=== PATIENT | female | born 1940 | race Caucasian/White ===

== ENCOUNTER 2022-10-23 10:22 | Outpatient (CLI) | payer OTHER, SELFPAY ==
[2022-10-23 13:48] LABS: Albumin* 4.1 g/dL (3.3-5.0)
[2022-10-23 13:49] LABS: Chloride* 92 mmol/L (96-114); Potassium* 4.6 mmol/L (3.6-5.1); Sodium* 127 mmol/L (135-149)
[2022-10-23 13:51] LABS: Aspartate Amino Transferase* 37 U/L (12-35); Bilirubin Total* 0.6 mg/dL (0.1-1.5); Carbon Dioxide* 28 mmol/L (20-32); Cholesterol* 161 mg/dL (90-199); Creatinine* 0.9 mg/dL (0.5-1.5); Estimated Glomerular Filt Rate 65 ml/min; Total Protein* 7.2 g/dL (6.0-8.3)
[2022-10-23 13:52] LABS: Alanine Aminotransferase* 36 U/L (4-35); Alkaline Phosphatase* 99 U/L (40-150); Blood Urea Nitrogen* 10 mg/dL (7-30); Calcium* 9.1 mg/dL (8.4-10.6); Glucose* 111 mg/dL (60-115); HDL Cholesterol* 72 mg/dL (>=50); LDL Cholesterol Calculated 64 mg/dL (<100); Triglycerides* 123 mg/dL (40-149)
[2022-10-23 14:20] LABS: TSH With Reflex to FT4* 0.981 uIU/mL (0.270-4.200)
== END 2022-10-23 10:23 | disposition home or self-care (01) ==
PROVIDERS: PCP Physician Assistant Medical; Visit Provider Physician Assistant Medical
DX: E78.2 Mixed hyperlipidemia (principal); E78.5 Hyperlipidemia, unspecified; I10 Essential (primary) hypertension; I15.0 Renovascular hypertension; J41.0 Simple chronic bronchitis
CPT/HCPCS: 80053; 80061; 84443

== ENCOUNTER 2023-12-25 10:47 | Outpatient (CLI) | payer OTHER, SELFPAY | END 2023-12-25 10:48 | disposition home or self-care (01) | LOC: NFLDREF 12-26 07:22 | PROVIDERS: PCP Physician Assistant Medical; Referring Provider Physician Assistant Medical; Visit Provider Physician Assistant Medical | DX: Z78.0 Asymptomatic menopausal state (principal); E78.2 Mixed hyperlipidemia; E87.1 Hypo-osmolality and hyponatremia; I70.1 Atherosclerosis of renal artery; M85.80 Other specified disorders of bone density and structure, unspecified site | CPT/HCPCS: 80053; 80061; 84443 ==

== ENCOUNTER 2025-03-15 11:54 | Outpatient (CLI) | payer OTHER, SELFPAY | END 2025-03-15 11:55 | disposition home or self-care (01) | LOC: NFLDREF 03-17 02:44 | PROVIDERS: PCP Physician Assistant Medical; Referring Provider Physician Assistant Medical; Visit Provider Physician Assistant Medical | DX: Z00.00 Encounter for general adult medical examination without abnormal findings (principal); I10 Essential (primary) hypertension; E87.1 Hypo-osmolality and hyponatremia; I15.0 Renovascular hypertension; E78.2 Mixed hyperlipidemia; I70.1 Atherosclerosis of renal artery | CPT/HCPCS: 80053; 80061; 84443 ==

== ENCOUNTER 2025-03-27 10:33 | Inpatient (IN) | payer OTHER, SELFPAY ==
[2025-03-27] VITALS (31 sets, daily range): BP systolic 112–171; BP diastolic 56–80; PULSE 77–148; RESP 18–35; TEMP 36.6–36.9; O2SAT 74–96; BMI 17.4; BMI 19.0
--- NOTE | 2025-03-27 10:55 | CRLHL7_ITS ---
For Patients: As a result of the Cures Act, medical imaging exams and procedure reports are released immediately into your electronic medical record. You may view this report before your referring provider. If you have questions, please contact your health care provider. INDICATION: Shortness of breath. No additional clinical history is given. COMPARISON: No recent prior comparison examination. Comparison is made to much older examinations, the most recent dated 06/27/2015. TECHNIQUE: PA and lateral views of the chest. FINDINGS: Medical Devices: None. Lung Volumes: Increased lung volumes consistent with chronic obstructive airways disease.. Lungs: Advanced emphysema. Bilateral peripheral midlung ill-defined opacities on the frontal view of the chest could be due to nonspecific acute airspace disease (i.e. bronchopneumonia) in the correct clinical setting. No coalescent consolidation. Nonspecific perihilar peribronchial cuffing consistent with bronchitis. Differential diagnostic considerations include interstitial edema. Cephalization of the pulmonary vascular markings may indicate pulmonary venous congestion. Pleura and Pleural spaces: No significant pleural effusion. No pneumothorax. Mediastinum: Normal cardiomediastinal silhouette. Bony Thorax and Soft Tissues: No significant incidental findings. IMPRESSION: 1. Advanced emphysema. Associated increased lung volumes are consistent with chronic obstructive airways disease. 2. Bilateral peripheral midlung ill-defined opacities on the frontal view of the chest could be due to nonspecific acute airspace disease (i.e. bronchopneumonia) in the correct clinical setting. 3. Nonspecific perihilar peribronchial cuffing consistent with bronchitis. Differential diagnostic considerations include interstitial edema. 4. Cephalization of the pulmonary vascular markings may indicate pulmonary venous congestion. Correlate clinically as to congestive heart failure or volume overload. Dictated by Guanaco Carrion MD @ 03/27/2025 12:15:27 PM (Electronically Signed)
--- NOTE | 2025-03-27 10:57 | ED.SOB ---
HPI - SOB/Dyspnea General Chief Complaint: Shortness of Breath/Dyspnea Stated Complaint: Shortness of breath and coughing Time Seen by Provider: 03/27/25 10:51 History of Present Illness HPI Narrative: Patient is a 84-year-old woman who comes in today with a 6 day history of shortness of breath. History of COPD and still smokes 3 cigarettes per day. She has had no chest pain she does have orthopnea but no PND no nausea no vomiting no fevers no chills. Patient states that she feels like she may have an infection as she is much worse on her breathing now. Patient has not missed any of her medications. No other concerns. Cough is nonproductive. Related Data Previous Rx's ?Medication ?Instructions ?Recorded albuterol sulfate 90 mcg/actuation 2 puff inhalation Q6H PRN 03/15/25 aerosol inhaler (Ventolin HFA) shortness of breath or wheezing #8.5 grams fluticasone furoate 200 1 ea PO DAILY 3 months #180 ea 03/15/25 mcg-vilanterol 25 mcg/dose inhalation powder (Breo Ellipta) lisinopril 10 mg tablet 10 mg PO QDAY #90 tabs 03/15/25 metoprolol succinate 50 mg 50 mg PO QDAY #90 tabs 03/15/25 tablet,extended release 24 hr pravastatin 20 mg tablet 20 mg PO QHS #90 tabs 03/15/25 Allergies Allergy/AdvReac Type Severity Reaction Status Date / Time seasonal Allergy Mild Sneezing Uncoded 03/15/25 11:03 Review of Systems Status of ROS: Reports: 10 or more systems reviewed and unremarkable except as noted in History and below [facility] Medical History Tobacco use (05/18/09) ?Z72.0 - Tobacco use (ICD-10) History of benign breast biopsy (06/21/10) ?Z98.890 - Other specified postprocedural states (ICD-10) Surgical History History of cataract extraction ?Z98.49 - Cataract extraction status, unspecified eye (ICD-10) Social History What is your current living situation?: I presently have a place to live Problems where you live: no known problems In the past 12 months, utilities in danger of being shut off: no In past 12 months, lack of transportation kept you from medical appts, meetings, work, or getting things needed for daily living: no In the past 12 mos, have been you worried that your food would run out before you had money to buy more?: never true In the past 12 mos, the food you bought just didn't last and you didn't have money to buy more?: never true Smoking Status: Current every day smoker How often do you have a drink containing alcohol: never AUDIT-C Alcohol total score: 0 Non-prescribed substance use: denies use How often does anyone, including family, friends and others, physically hurt you: never How often does anyone, including family, friends and others, insult or talk down to you: never How often does anyone, including family, friends and others, threaten you with harm: never How often does anyone, including family, friends and others, scream or curse at you: never Exam Narrative: Exam Narrative: EXAM GENERAL: Patient appears elderly and he may seated. THYROID: no thyroid nodules or thyromegaly. LYMPH: No supraclavicular or cervical lymphadenopathy. SKIN: Visible skin seen during exam normal or with benign process only. EXT: No dependent lower extremity pedal edema. HEART: Regular rate and rhythm with no murmurs, rubs, or gallops. LUNGS: Diffuse wheezing and rhonchi heard bilaterally. ABD: Soft, non tender, non distended. PSYCH: Good eye contact, speech is not pressured. Const: Vital Signs, click to edit/add: Vital Signs - 24 hr 03/27/25 10:39 03/27/25 10:54 03/27/25 10:56 Temperature 98.2 F Pulse Rate 99 Pulse Rate [Pulse Oximeter] 102 H Respiratory Rate 28 H 32 H 25 H Blood Pressure 171/76 H Blood Pressure [Ri ght Upper Arm] 152/62 H Pulse Oximetry 88 74 L 89 Oxygen Delivery Me thod Room Air Room Air Oxygen Flow Rate Fraction of Inspir ed Oxygen 03/27/25 10:57 03/27/25 10:58 03/27/25 11:00 Temperature Pulse Rate 94 90 Pulse Rate [Pulse Oximeter] Respiratory Rate 30 H 35 H Blood Pressure Blood Pressure [Ri ght Upper Arm] Pulse Oximetry 92 85 L 91 Oxygen Delivery Me thod Nasal Cannula Room Air Oxygen Flow Rate 1 2 Fraction of Inspir ed Oxygen 03/27/25 11:02 03/27/25 11:15 03/27/25 11:30 Temperature Pulse Rate 95 84 90 Pulse Rate [Pulse Oximeter] Respiratory Rate 35 H 30 H 35 H Blood Pressure 170/72 H Blood Pressure [Ri ght Upper Arm] Pulse Oximetry 90 92 92 Oxygen Delivery Me thod Oxygen Flow Rate Fraction of Inspir ed Oxygen 03/27/25 11:31 03/27/25 11:48 03/27/25 12:00 Temperature Pulse Rate 87 102 H 94 Pulse Rate [Pulse Oximeter] Respiratory Rate 27 H 21 Blood Pressure 141/69 H Blood Pressure [Ri ght Upper Arm] Pulse Oximetry 92 93 96 Oxygen Delivery Me thod Oxygen Flow Rate Fraction of Inspir ed Oxygen 03/27/25 12:01 03/27/25 13:01 Temperature Pulse Rate 97 Pulse Rate [Pulse Oximeter] Respiratory Rate 32 H Blood Pressure 147/77 H Blood Pressure [Ri ght Upper Arm] Pulse Oximetry 95 Oxygen Delivery Me thod Nasal Cannula Oxygen Flow Rate Fraction of Inspir ed Oxygen 0.28 Course Course ED Course: Will begin workup with CBC CMP troponin D-dimer blood gas blood cultures procalcitonin and lactate. Will also obtain EKG and chest x-ray. Vital Signs Vital signs: Initial Vital Signs Temperature 98.2 F 03/27/25 10:39 Temperature Source Temporal Artery Scan 03/27/25 10:39 Pulse Rate 102 H 03/27/25 10:39 Respiratory Rate 28 H 03/27/25 10:39 Blood Pressure 152/62 H 03/27/25 10:39 Blood Pressure Mean 92 03/27/25 10:39 Pulse Oximetry 88 03/27/25 10:39 Oxygen Delivery Method Room Air 03/27/25 10:39 Vital Signs Temperature 98.2 F 03/27/25 10:39 Pulse Rate 102 H 03/27/25 10:39 Respiratory Rate 28 H 03/27/25 10:39 Blood Pressure 152/62 H 03/27/25 10:39 Pulse Oximetry 88 03/27/25 10:39 Oxygen Delivery Method Room Air 03/27/25 10:39 Temperature 98.2 F 03/27/25 10:39 Pulse Rate 97 03/27/25 12:01 Respiratory Rate 32 H 03/27/25 12:01 Blood Pressure 147/77 H 03/27/25 12:01 Pulse Oximetry 95 03/27/25 12:01 Oxygen Delivery Method Nasal Cannula 03/27/25 13:01 Oxygen Flow Rate 2 03/27/25 10:58 Fraction of Inspired Oxygen 0.28 03/27/25 13:01 Medications Administered Medications: Discontinued Medications Generic Name Dose Route Start Last Admin Trade Name Gaye PRN Reason Stop Dose Admin Albuterol/Ipratropium 1 neb 03/27/25 11:00 03/27/25 11:45 Iprat-Albut 0.5-2.5 Mg/3 Ml Neb IH 03/27/25 11:01 1 neb ONCE ONE Administration Azithromycin 500 mg/ Sodium 255 mls @ 255 mls/hr 03/27/25 12:23 03/27/25 12:50 Chloride IVPB 03/27/25 12:24 255 mls/hr ONCE ONE Administration Methylprednisolone Sodium Succinate 40 mg 03/27/25 12:23 03/27/25 12:41 Methylprednisolone Sod Succ 40 Mg/Ml IVP 03/27/25 12:24 40 mg ONCE ONE Administration MDM - SOB/Dyspnea MDM Narrative Medical decision making narrative: Patient presents with shortness of breath in the setting of COPD. Does have elevated white blood cell count but a normal procalcitonin. She did have blood cultures collected. Chest x-ray shows bibasilar interstitial findings D-dimer was mildly elevated. I did do CT of her chest and she does have tree-in-bud formation consistent with viral pneumonia. I did give her Rocephin Zithromax Solu-Medrol and DuoNeb. Patient will be admitted for further evaluation and treatment. She requires 2 L of oxygen to maintain her saturation. Lab Data Labs: Lab Results 03/27/25 03/27/25 Range/Units 11:09 Unknown WBC 15.31 H (4.50-11.00) K/uL RBC 4.47 (4.00-5.20) m/uL Hgb 13.8 (12.0-16.0) gm/dL Hct 41.0 (33.0-51.0) % MCV 92 (80-100) fL MCH 31 (26-34) pg MCHC 34 (32-36) gm/dL RDW Coeff of Gena 12.0 (11.5-15.5) % Plt Count 367 (140-440) K/uL Neut % (Auto) 86.3 H (42.0-72.0) % Lymph % (Auto) 6.1 L (20-44) % [place] % (Auto) 6.9 (0.0-11.0) % Eos % (Auto) 0.1 (0.0-7.0) % Baso % (Auto) 0.3 (0.0-3.0) % Neut # (Auto) 13.20 H (1.7-7.0) K/uL Lymph # (Auto) 0.90 (0.90-2.90) K/uL [place] # (Auto) 1.10 H (0.00-0.90) K/UL Eos # (Auto) 0.00 (0.00-0.50) K/uL Baso # (Auto) 0.00 (0.00-0.30) K/uL Abs Immat Gran (auto) 0.00 (0.00-0.30) K/uL Imm/Tot Granulo (auto) 0.3 % D-Dimer Quant (PE/DVT) 0.71 H (0.00-0.50) ug/ml ABG pH 7.45 (7.35-7.45) ABG pCO2 43 (35-45) mmHG ABG pO2 62.2 L (80-105) mmHG ABG HCO3 30 H (21-28) mmol/L ABG Total CO2 26 (21-30) mmol/l ABG O2 Saturation 93 (92-100) % ABG Base Excess 4.8 H (-3.0-3.0) mmol/L Sodium 130 L (135-149) mmol/L Potassium 4.0 (3.6-5.1) mmol/L Chloride 90 L (96-114) mmol/L Carbon Dioxide 31 (20-32) mmol/L Anion Gap 9 (7-15) mEq/L BUN 8 (7-30) mg/dL Creatinine 0.7 (0.5-1.5) mg/dL Estimated Creat Clear 27.64 Estimated GFR 86 ml/min Glucose 136 H (60-115) mg/dL Lactate 1.8 (0.5-1.9) mmol/L Calcium 9.0 (8.4-10.6) mg/dL Total Bilirubin 0.6 (0.1-1.5) mg/dL AST 38 H (12-35) U/L ALT 26 (4-35) U/L Alkaline Phosphatase 107 (40-150) U/L Troponin I 0.01 (0.01-0.04) ng/mL Total Protein 7.3 (6.0-8.3) g/dL Albumin 3.9 (3.3-5.0) g/dL Procalcitonin 0.10 (<0.50) ng/mL SARS-CoV-2 (PCR) Negative SARS-CoV-2 (Negative) Influenza Type A (PCR) Negative PCR FLU A (Negative) Influenza Type B (PCR) Negative PCR FLU B (Negative) RSV (PCR) Negative PCR RSV (Negative) Discharge Plan Discharge Clinical Impression: COPD (chronic obstructive pulmonary disease) Qualifiers: COPD type: chronic bronchitis Chronic bronchitis type: simple Qualified Code(s): J41.0 - Simple chronic bronchitis Patient Disposition: Admitted As Observation Condition: Stable Activity Level: No Restrictions Discharge Diet: Regular Procedures ABG Interpretation ABG Results: 03/27/25 11:09 ABG pH 7.45 ABG pCO2 43 ABG pO2 62.2 L ABG HCO3 30 H ABG Total CO2 26 ABG O2 Saturation 93 ABG Base Excess 4.8 H
[2025-03-27 11:17] LABS: Hematocrit* 41.0 % (33.0-51.0); Hemoglobin* 13.8 gm/dL (12.0-16.0); Immature Granulocytes Pct Auto 0.3 %; Mean Corpuscular HGB Conc 34 gm/dL (32-36); Mean Corpuscular Hemoglobin 31 pg (26-34); Mean Corpuscular Volume 92 fL (80-100); RDW Coefficient of Variation % 12.0 % (11.5-15.5); Red Blood Count* 4.47 m/uL (4.00-5.20); White Blood Count* 15.31 K/uL (4.50-11.00)
[2025-03-27 11:20] LABS: Immature Granulocytes Abs Auto 0.00 K/uL (0.00-0.30); Lymphocytes Absolute Auto 0.90 K/uL (0.90-2.90); Slide Review Reflex No
[2025-03-27 11:33] LABS: ABG PCO2 43 mmHG (35-45); HCO3 ABG 30 mmol/L (21-28); Oxygen Saturation ABG 93 % (92-100); PO2 ABG 62.2 mmHG (80-105); TCO2 ABG 26 mmol/l (21-30)
[2025-03-27 11:34] LABS: Chloride* 90 mmol/L (96-114)
[2025-03-27 11:35] LABS: Albumin* 3.9 g/dL (3.3-5.0); Lactate* 1.8 mmol/L (0.5-1.9); Potassium* 4.0 mmol/L (3.6-5.1); Sodium* 130 mmol/L (135-149)
[2025-03-27 11:37] LABS: Blood Urea Nitrogen* 8 mg/dL (7-30); Creatinine* 0.7 mg/dL (0.5-1.5); Est. Creatinine Clearance* 27.64; Estimated Glomerular Filt Rate 86 ml/min
[2025-03-27 11:38] LABS: Alanine Aminotransferase* 26 U/L (4-35); Alkaline Phosphatase* 107 U/L (40-150); Anion Gap 9 mEq/L (7-15); Aspartate Amino Transferase* 38 U/L (12-35); Bilirubin Total* 0.6 mg/dL (0.1-1.5); Calcium* 9.0 mg/dL (8.4-10.6); Carbon Dioxide* 31 mmol/L (20-32); Glucose* 136 mg/dL (60-115); Total Protein* 7.3 g/dL (6.0-8.3)
[2025-03-27 11:40] LABS: D Dimer Quantitative* 0.71 ug/ml (0.00-0.50)
[2025-03-27] MEDS: IPRAT-ALBUT 0.5-2.5 MG/3 ML NEB 1 NEB IH ×3 (11:45→22:40)
[2025-03-27 11:55] LABS: Procalcitonin* 0.10 ng/mL (<0.50)
--- NOTE | 2025-03-27 12:15 | CRLHL7_ITS ---
For Patients: As a result of the Century Cures Act, medical imaging exams and procedure reports are released immediately into your electronic medical record. You may view this report before your referring provider. If you have questions, please contact your health care provider. INDICATION: Shortness of breath. Positive D-dimer. TECHNIQUE: CT chest with 95 cc Isovue 370 i.v. contrast. Pulmonary embolism protocol. Coronal and sagittal reformats were obtained. COMPARISON: Chest radiograph from 03/27/2025. FINDINGS: Cardiovascular: The heart has an unremarkable appearance and size. Thoracic aorta is normal in caliber and appearance. The pulmonary arteries are normal in appearance. Mediastinum and rosario: Bilateral. Hilar bronchial wall thickening. Lungs: Multiple nodular opacities within the lungs, most prominent within the perihilar regions and the right upper lobe. There is also platelike opacification at the right lung base which may reflect atelectasis or scar. Mosaic attenuation within the lungs bilaterally, most prominent in the upper lung regions, most likely reflecting air trapping in this setting. Emphysematous changes are present within the lungs. Pleura and pericardium: Within normal limits. Chest wall and axilla: Mildly accentuated thoracic kyphosis. No acute osseous abnormalities. Bones: Within normal limits. Upper abdomen: Within normal limits. IMPRESSION: 1. No evidence of pulmonary embolism. 2. Perihilar bronchiolar wall thickening and scattered pulmonary nodules/tree-in-bud opacities as well as some evidence of air trapping. Usually this is seen in the setting of small airways infection, inflammatory bronchiolitis, or aspiration. 3. Bilateral emphysematous changes within both lungs. Please note that all CT scans at this facility use dose modulation, iterative reconstruction, and/or weight-based dosing when appropriate to reduce radiation dose to as low as reasonably achievable. Dictated by Tee Griffin MD @ 03/27/2025 1:29:19 PM (Electronically Signed)
[2025-03-27 12:47] LABS: PCR FLU A Negative PCR FLU A (Negative); PCR FLU B Negative PCR FLU B (Negative); PCR RSV Negative PCR RSV (Negative); SARS PCR* Negative SARS-CoV-2 (Negative)
[2025-03-27] MEDS: AZITHROMYCIN 500 MG in 0.9 % SODIUM CHLORIDE 250 ml 250 ML 255 MG IVPB (12:50)
[2025-03-27] MEDS: cefTRIAXone 1 GM in 0.9 % SODIUM CHLORIDE Mini-bag 100 ML IVPB (13:57)
--- NOTE | 2025-03-27 15:46 | PM.IMHP1 ---
Assessment and Plan Assessment and plan (1) Acute on chronic hypoxic respiratory failure: Problem comment: - multifactorial including acute bronchopneumonia, COPD, ongoing tobacco use - oxygen support for now, monitoring venous blood gases as warranted - increased management of COPD Status: Acute (2) Bronchopneumonia: Problem comment: - meets radiographic carry teary, laboratory criteria, as well as physiologic criteria with increased dyspnea and cough and history of fever at the onset 6-7 days ago - received intravenous ceftriaxone and azithromycin in the emergency department - will continue with ceftriaxone 1 g IV daily and change to doxycycline 100 mg orally twice daily - monitor CBC, venous blood gas, BNP, EKG, troponin I Status: Acute (3) Physical deconditioning: Problem comment: - activities as tolerated - venous thromboembolism prophylaxis, enoxaparin 30 mg subcutaneously once daily given creatinine clearance of 27 Status: Acute (4) Tobacco use: Problem comment: - pre contemplative about smoking cessation at this juncture - willing to try nicotine patch, after I explained that will not address her psychological and emotional dependence but only help with the physical dependence Status: Acute (5) COPD (chronic obstructive pulmonary disease): Problem comment: - in-hospital will use nebulized budesonide and albuterol with ipratropium on a scheduled basis, plus albuterol nebulization as needed - Aerobika device use with respiratory therapy support and education Status: Acute Plan 1. Reviewed impression, plans, recommendations with patient 2. Answered patient's questions to her satisfaction 3. Continue with supportive efforts for other conditions 4. IV normal saline 2 L over 16 hours and monitor serum sodium 5. Nutrition consultation given ongoing concerns of weight loss in association with advanced lung disease 6. Patient agreeable with above stated plans and recommendations Total Time Spent Total Time Spent: 70 minutes Hospitalist- H&P: HPI History of Present Illness Date Seen: 03/27/25 Chief complaint: Shortness of breath and coughing Narrative: Jenelle Manuel is a 84 year old woman who presents to the emergency department with a 6-7 day history of increasing dyspnea with exertion, productive cough, decreased appetite. She has lived in her own home alone for the past 11 months. Previously she lived in her own home with her daughter and son-in-law, who moved out 11 months ago. Has felt increased sense of anxiety and stress since living alone. She tells me she uses smoking as a means to decrease her sense of anxiety. She says she gets nervous ?really easy. ? When she does smoke she takes 2-3 puffs of a cigarette, puts out the cigarette in later does the same thing and smokes 3-4 cigarettes per day in this fashion. He eventually wants to continue to try to cut down on her smoking but not ready to do so any more than she already has at this time. 6-7 days ago, she had marked worsening of her health due to increase cough with sputum production, increasing dyspnea with exertion, a sense of feeling feverish although she never took her temperature. Her appetite has declined significantly since that time as well. Does not believe her condition has improved at all over the last 6-7 days and has become increasingly anxious about the same. Finally this morning she decided that she had had enough and called her daughter, Syl, who lives in [facility], who recommended that the patient present to the emergency department for further assessment. Has not had any fevers since that 1st and 2nd day. Other symptoms progressively increasing such that she can hardly even walk now due to dyspnea. Ordinarily does not have dyspnea with conversation but notes increasing dyspnea with conversation. Denies edema. Denies chest heaviness, pressure, tightness, pain. Denies syncope or near-syncope. Has had decreased oral intake due to decreased interest in eating. Review of Systems Status of ROS: Reports: 10 or more systems reviewed and unremarkable except as noted in History and below Narrative: In addition to symptoms specified above she denies any additional gastrointestinal or genitourinary tract symptoms. Denies nausea, vomiting, or abdominal pain. Denies blood loss of any sort including hemoptysis, hematemesis, hematuria, melena, hematochezia, epistaxis, or any other sort of blood loss. No recent travel or trauma. No focal motor neurologic deficits. Remarkably she tells me she has been using her scheduled medications only. She has not tried to use her rescue inhaler at all. Noticed an improvement in her breathing when she received the nebulized albuterol in the emergency department today. Improvement did not last long but was certainly noticeable. Medical Decision Making Medical Decision Making Code Status: Full resuscitation Has patient completed a Health Care Directive: Yes During This Stay, Who Would You Like To Make Decisions For You In The Event You Are Unable To Make Them For Yourself?: Designates her daughter, Syl, as her principal spokes person should she herself not be able to speak on her own behalf. Relevant situational information: Does not want to be kept alive in a persistent vegetative state. [facility] Medical History COPD (chronic obstructive pulmonary disease) ?J44.9 - Chronic obstructive pulmonary disease, unspecified (ICD-10) Osteopenia (06/21/10) ?M85.80 - Other specified disorders of bone density and structure, unspecified site (ICD-10) Renal artery stenosis ?I70.1 - Atherosclerosis of renal artery (ICD-10) Hyperlipidemia (06/21/10) ?E78.5 - Hyperlipidemia, unspecified (ICD-10) Hypertension (05/18/09) ?I10 - Essential (primary) hypertension (ICD-10) Chronic hyponatremia ?E87.1 - Hypo-osmolality and hyponatremia (ICD-10) Tobacco use (05/18/09) ?Z72.0 - Tobacco use (ICD-10) History of benign breast biopsy (06/21/10) ?Z98.890 - Other specified postprocedural states (ICD-10) Surgical History History of cataract extraction ?Z98.49 - Cataract extraction status, unspecified eye (ICD-10) Social History What is your current living situation?: I presently have a place to live Problems where you live: no known problems Problems where you live details: none In the past 12 months, utilities in danger of being shut off: no In past 12 months, lack of transportation kept you from medical appts, meetings, work, or getting things needed for daily living: no In the past 12 mos, have been you worried that your food would run out before you had money to buy more?: never true In the past 12 mos, the food you bought just didn't last and you didn't have money to buy more?: never true Highest level of school completed/degree received: high school graduate Smoking Status: Current every day smoker What tobacco products do you use: cigarettes How often do you have a drink containing alcohol: never AUDIT-C Alcohol total score: 0 Non-prescribed substance use: denies use Caffeine: Yes (coffee) How often does anyone, including family, friends and others, physically hurt you: never How often does anyone, including family, friends and others, insult or talk down to you: never How often does anyone, including family, friends and others, threaten you with harm: never How often does anyone, including family, friends and others, scream or curse at you: never service: No Meds Home Medications and Allergies Home Medications ?Medication ?Instructions ?Recorded ?Confirmed ?Type albuterol sulfate 90 mcg/actuation 2 puff inhalation Q6H PRN 03/15/25 03/27/25 Rx aerosol inhaler (Ventolin HFA) shortness of breath or wheezing #8.5 grams fluticasone furoate 200 1 ea PO DAILY 03/27/25 03/27/25 History mcg-vilanterol 25 mcg/dose inhalation powder (Breo Ellipta) lisinopril 10 mg tablet 10 mg PO DAILY 03/27/25 03/27/25 History metoprolol succinate 50 mg 50 mg PO DAILY 03/27/25 03/27/25 History tablet,extended release 24 hr pravastatin 20 mg tablet 20 mg PO HS 03/27/25 03/27/25 History Allergies Allergy/AdvReac Type Severity Reaction Status Date / Time seasonal Allergy Mild Sneezing Uncoded 03/15/25 11:03 Exam Narrative: Exam Narrative: I examined patient in her hospital room. With oxygen supplementation at 2 liters/minute her oxygen saturations are about 90%. On admission her room air oxygen saturations were as low as 74%. Ordinarily does not utilize oxygen supplementation. She is indeed tachypneic and acknowledges dyspnea with conversation. Appears somewhat anxious. Otherwise appears comfortable. No acute distress. Alert and oriented x4. Vision and hearing are adequate. Friendly, articulate, cooperative. Appears thin and cachectic. No icterus, jaundice, cyanosis, or petechiae. No rashes. Midline nasal septum. Dry buccal mucosa. Dentition in fair repair. Conjugate gaze. Cranial nerves 3-12 grossly normal. Midline trachea. No head neck lymphadenopathy. No JVD or hepatojugular reflux. Coarse scattered rhonchi throughout both lung [place]ell, right greater than left. End inspiratory rales bibasilarly. Inspiratory and expiratory wheezing noted. Prolonged expiratory phase. Utilizing accessory muscles of respiration at rest. Pursed lip breathing. Barrel-shaped chest. No CVA tenderness to percussion. Distant heart tones. PMI not laterally displaced. Abdomen with active bowel sounds, soft, nontender. Extremities without edema. Palpable pulses upper and lower extremities, symmetric. Independent with transfer, station, gait. No focal motor neurologic deficits. Const: Vital Signs, click to edit/add: Vital Signs - 24 hr 03/27/25 10:39 03/27/25 10:54 03/27/25 10:56 Temperature 98.2 F Pulse Rate 99 Pulse Rate [Pulse Oximeter] 102 H Respiratory Rate 28 H 32 H 25 H Blood Pressure 171/76 H Blood Pressure [Ri ght Arm] Blood Pressure [Ri ght Upper Arm] 152/62 H Pulse Oximetry 88 74 L 89 Oxygen Delivery Me thod Room Air Room Air Oxygen Flow Rate Fraction of Inspir ed Oxygen 03/27/25 10:57 03/27/25 10:58 03/27/25 11:00 Temperature Pulse Rate 94 90 Pulse Rate [Pulse Oximeter] Respiratory Rate 30 H 35 H Blood Pressure Blood Pressure [Ri ght Arm] Blood Pressure [Ri ght Upper Arm] Pulse Oximetry 92 85 L 91 Oxygen Delivery Me thod Nasal Cannula Room Air Oxygen Flow Rate 1 2 Fraction of Inspir ed Oxygen 03/27/25 11:02 03/27/25 11:15 03/27/25 11:30 Temperature Pulse Rate 95 84 90 Pulse Rate [Pulse Oximeter] Respiratory Rate 35 H 30 H 35 H Blood Pressure 170/72 H Blood Pressure [Ri ght Arm] Blood Pressure [Ri ght Upper Arm] Pulse Oximetry 90 92 92 Oxygen Delivery Me thod Oxygen Flow Rate Fraction of Inspir ed Oxygen 03/27/25 11:31 03/27/25 11:48 03/27/25 12:00 Temperature Pulse Rate 87 102 H 94 Pulse Rate [Pulse Oximeter] Respiratory Rate 27 H 21 Blood Pressure 141/69 H Blood Pressure [Ri ght Arm] Blood Pressure [Ri ght Upper Arm] Pulse Oximetry 92 93 96 Oxygen Delivery Me thod Oxygen Flow Rate Fraction of Inspir ed Oxygen 03/27/25 12:01 03/27/25 12:02 03/27/25 12:15 Temperature Pulse Rate 97 100 78 Pulse Rate [Pulse Oximeter] Respiratory Rate 32 H 22 35 H Blood Pressure 147/77 H Blood Pressure [Ri ght Arm] Blood Pressure [Ri ght Upper Arm] Pulse Oximetry 95 95 95 Oxygen Delivery Me thod Oxygen Flow Rate Fraction of Inspir ed Oxygen 03/27/25 12:42 03/27/25 12:45 03/27/25 13:00 Temperature Pulse Rate 148 H 114 H 101 H Pulse Rate [Pulse Oximeter] Respiratory Rate 25 H 25 H Blood Pressure Blood Pressure [Ri ght Arm] Blood Pressure [Ri ght Upper Arm] Pulse Oximetry 76 L 93 95 Oxygen Delivery Me thod Oxygen Flow Rate Fraction of Inspir ed Oxygen 03/27/25 13:01 03/27/25 13:01 03/27/25 13:15 Temperature Pulse Rate 99 101 H Pulse Rate [Pulse Oximeter] Respiratory Rate 26 H 29 H Blood Pressure 130/68 Blood Pressure [Ri ght Arm] Blood Pressure [Ri ght Upper Arm] Pulse Oximetry 96 93 Oxygen Delivery Me thod Nasal Cannula Oxygen Flow Rate Fraction of Inspir ed Oxygen 0.28 03/27/25 13:30 03/27/25 13:31 03/27/25 13:45 Temperature Pulse Rate 94 94 92 Pulse Rate [Pulse Oximeter] Respiratory Rate 26 H 27 H 23 Blood Pressure 120/63 Blood Pressure [Ri ght Arm] Blood Pressure [Ri ght Upper Arm] Pulse Oximetry 95 96 96 Oxygen Delivery Me thod Oxygen Flow Rate Fraction of Inspir ed Oxygen 03/27/25 14:00 03/27/25 14:01 03/27/25 14:43 Temperature 97.8 F Pulse Rate 98 97 Pulse Rate [Pulse Oximeter] 107 H Respiratory Rate 24 35 H 22 Blood Pressure 126/70 Blood Pressure [Ri ght Arm] 145/80 H Blood Pressure [Ri ght Upper Arm] Pulse Oximetry 94 92 91 Oxygen Delivery Me thod Nasal Cannula Oxygen Flow Rate 1 Fraction of Inspir ed Oxygen Hospitalist - H&P: Result Labs Labs: Short CBC 03/27/25 Range/Units 11:09 WBC 15.31 H (4.50-11.00) K/uL Hgb 13.8 (12.0-16.0) gm/dL Hct 41.0 (33.0-51.0) % Plt Count 367 (140-440) K/uL BMP 03/27/25 11:09 Sodium 130 L Potassium 4.0 Chloride 90 L Carbon Dioxide 31 BUN 8 Creatinine 0.7 Glucose 136 H Calcium 9.0 Cardiac Enzymes 03/27/25 Range/Units 11:09 Troponin I 0.01 (0.01-0.04) ng/mL Liver Function 03/27/25 Range/Units 11:09 Total Bilirubin 0.6 (0.1-1.5) mg/dL AST 38 H (12-35) U/L ALT 26 (4-35) U/L Alkaline Phosphatase 107 (40-150) U/L Albumin 3.9 (3.3-5.0) g/dL Imaging Chest x-ray: Attestation: I have reviewed the pertinent imaging results. Radiologist's impression: IMPRESSION: 1. Advanced emphysema. Associated increased lung volumes are consistent with chronic obstructive airways disease. 2. Bilateral peripheral midlung ill-defined opacities on the frontal view of the chest could be due to nonspecific acute airspace disease (i.e. bronchopneumonia) in the correct clinical setting. 3. Nonspecific perihilar peribronchial cuffing consistent with bronchitis. Differential diagnostic considerations include interstitial edema. 4. Cephalization of the pulmonary vascular markings may indicate pulmonary venous congestion. Correlate clinically as to congestive heart failure or volume overload. CT scan - angiogram of chest: Attestation: I have reviewed the pertinent imaging results. Radiologist's impression: IMPRESSION: 1. No evidence of pulmonary embolism. 2. Perihilar bronchiolar wall thickening and scattered pulmonary nodules/tree-in-bud opacities as well as some evidence of air trapping. Usually this is seen in the setting of small airways infection, inflammatory bronchiolitis, or aspiration. 3. Bilateral emphysematous changes within both lungs.
[2025-03-27] MEDS: ENOXAPARIN 30 MG/0.3ML INJ SUBCUT (16:07)
[2025-03-27 16:27] LABS: NT Pro B Type NatriureticPept* 1310 pg/mL (See Note)
--- NOTE | 2025-03-27 19:25 | PC.NURSE ---
End of Shift: Patient pleasant and cooperative, alert and oriented. Patient is vitally stable, lungs course, with Rhonchi, and wheezes at times. Patient is on 1 L NC with sats at most 92%. When using the commode with 1 L NC patient desated to low 80s and took a few minutes to recover. Bowel sounds WNL, IV running NS at 125. Patient tolerating regular diet, but does not have much of an appetite (soup for dinner), urinating well, no BM.
[2025-03-27] MEDS: ALBUTEROL SULFATE 2.5 MG/3 ML VIAL.NEB NEB (20:07)
[2025-03-27] MEDS: METOPROLOL SUCCINATE (XL) 50 MG TAB PO (21:02)
[2025-03-27] MEDS: BUDESONIDE 0.5 MG/2ML NEB NEB (21:02)
[2025-03-27] MEDS: DOXYCYCLINE HYCLATE 100 MG PO (21:03)
[2025-03-27] MEDS: SODIUM CHLORIDE 0.9 % (FLUSH) 10 ML SYRINGE 5 ML IVF (21:04)
[2025-03-28] VITALS (14 sets, daily range): BP systolic 116–126; BP diastolic 53–64; PULSE 71–95; RESP 18–26; TEMP 36.6–36.8; O2SAT 88–96
[2025-03-28] MEDS: IPRAT-ALBUT 0.5-2.5 MG/3 ML NEB 1 NEB IH ×4 (03:55→23:19)
[2025-03-28] MEDS: ALBUTEROL SULFATE 2.5 MG/3 ML VIAL.NEB NEB (04:33)
[2025-03-28 06:11] LABS: HCO3 VBG 29 mmol/L (21-28); Lactate* 1.2 mmol/L (0.5-1.9); PCO2 VBG 51 mmHG (40-50); PO2 VBG 39.4 mmHG (25-47); pH VBG 7.364 (7.32-7.43)
[2025-03-28 06:13] LABS: Hematocrit* 33.1 % (33.0-51.0); Hemoglobin* 11.1 gm/dL (12.0-16.0); Mean Corpuscular HGB Conc 34 gm/dL (32-36); Mean Corpuscular Hemoglobin 31 pg (26-34); Mean Corpuscular Volume 93 fL (80-100); Red Blood Count* 3.58 m/uL (4.00-5.20); White Blood Count* 10.74 K/uL (4.50-11.00)
[2025-03-28 06:18] LABS: Slide Review Reflex No
--- NOTE | 2025-03-28 06:54 | PC.NURSE ---
Pt pleasant, alert and oriented.?VSS. O2 sats remained above 88 and in the low 90s on 1L of o2. Pt has a coarse cough and yellow tinged sputum. Areobika and prn nebulizers in use. Pt SOB at rest, o2 sats drop in to 80s with exacerbations, though recover within a minute. Utilized oxymask for mouth breathing; improvement noted. Pt has some incontinence, bedside commode utilized. Pt in bed, appears to be resting, call light within reach.?
[2025-03-28 07:20] LABS: Albumin* 3.0 g/dL (3.3-5.0); Chloride* 97 mmol/L (96-114)
[2025-03-28 07:21] LABS: Potassium* 3.9 mmol/L (3.6-5.1); Sodium* 130 mmol/L (135-149)
[2025-03-28 07:23] LABS: Blood Urea Nitrogen* 8 mg/dL (7-30); Creatinine* 0.6 mg/dL (0.5-1.5); Est. Creatinine Clearance* 30.53; Estimated Glomerular Filt Rate 90 ml/min
[2025-03-28 07:24] LABS: Anion Gap 6 mEq/L (7-15); Calcium* 7.8 mg/dL (8.4-10.6); Carbon Dioxide* 27 mmol/L (20-32); Glucose* 144 mg/dL (60-115)
[2025-03-28 07:37] LABS: NT Pro B Type NatriureticPept* 2820 pg/mL (See Note)
[2025-03-28] MEDS: cefTRIAXone 1 GM in 0.9 % SODIUM CHLORIDE Mini-bag 100 ML IVPB (07:52)
[2025-03-28 08:41] LABS: Free T4 Free Thyroxine* 1.68 ng/dL (0.70-1.85)
[2025-03-28] MEDS: FUROSEMIDE 20 MG TABLET PO (10:25)
[2025-03-28] MEDS: BUDESONIDE 0.5 MG/2ML NEB NEB ×2 (10:25→21:31)
[2025-03-28] MEDS: DOXYCYCLINE HYCLATE 100 MG PO ×2 (10:25→21:30)
--- NOTE | 2025-03-28 10:38 | RESP.RT ---
Patient is a current smoker of 3 cigarettes per day, but has been smoking at least a pack a day since she was 18. Patient states that she is currently not on supplemental O2. Patient has a loose productive cough with moderate sinus congestion. She states that she is currently taking Breo, but the cost has been difficult to manage. She may do better with scheduled nebulized medications as they would be more cost effective for her to manage. She has been placed on .25HFNC @ 35Lpm to help assist with mucus clearance along with using the Aerobika independently.
--- NOTE | 2025-03-28 16:13 | PM.IMPN1 ---
Assessment and Plan Assessment and plan (1) Acute on chronic hypoxic respiratory failure: Problem comment: - multifactorial including acute bronchopneumonia, COPD, ongoing tobacco use and CHF - oxygen support via HFNC - increased management of COPD Status: Acute (2) Bronchopneumonia: Problem comment: - meets radiographic criteria, laboratory criteria, as well as physiologic criteria with increased dyspnea and cough and history of fever at the onset 6-7 days ago - received intravenous ceftriaxone and azithromycin in the emergency department - will continue with ceftriaxone 1 g IV daily and change to doxycycline 100 mg orally twice daily - supported with nebs (Duo and steroids) - monitor CBC, venous blood gas, BNP, EKG, troponin I Status: Acute (3) Physical deconditioning: Problem comment: - activities as tolerated - venous thromboembolism prophylaxis, enoxaparin 30 mg subcutaneously once daily given creatinine clearance of 27 Status: Acute (4) Tobacco use: Problem comment: - pre contemplative about smoking cessation at this juncture - willing to try nicotine patch, after I explained that will not address her psychological and emotional dependence but only help with the physical dependence Status: Acute (5) COPD (chronic obstructive pulmonary disease): Problem comment: - in-hospital will use nebulized budesonide and albuterol with ipratropium on a scheduled basis, plus albuterol nebulization as needed - Aerobika device use with respiratory therapy support and education - no [facility] record of PFTs Status: Acute Subjective Date Seen: 03/28/25 Interval history: Daily Progress Note - Hospital Medicine #: 2 CC: COPD exacerbation, mild CHF exacerbation 24 HOUR UPDATE: Overnight she was stable. She remains significantly congested with mucus plugging and bronchial secretions in her chest as well as sinus congestion and sinus drainage. RT did evaluate today and felt the high-flow humidified oxygen would actually work well for her. And this was pursued for most of the day. She she felt less air hunger with this mode of support. Notable Labs, Micro, Rads, Interventions: She remains afebrile. Hemodynamically stable. Tachypneic. Pulse ox urge going to run a high 80s and currently she is on heated high-flow oxygen with a flow rate of 35 L and 25% FiO2. Her white blood cell count has come down nicely from 15.3-10.7. Her hemoglobin is 11.1. She has some mild hypercapnia with a CO2 this morning of 51. She has a mild hyponatremia at 130. Her glucose is 144. Otherwise her chemistries are unremarkable. Her CRP is 14.6, her BNP is 2800. Her albumin is 3.0 Her TSH is suppressed but her free T4 is normal. Blood cultures are negative to date. Objective: mild sarcopenia; cachexia. alert, insightful. Vitals: see above Lungs: significant rhonchi and wheezing throughout the lung newell. mild respiratory distress. Cardiac: S1S2. Disposition/Potential discharge - Today I spent 50minutes seeing the patient, reviewing Expanse and EPIC notes/diagnostics, discussing the care plan with our care time that includes social work, PT/OT, pharmacy, RT, snf and documenting my impressions and plan in the medical record. Exam Const: Vital Signs, click to edit/add: Vital Signs - 24 hr 03/27/25 19:57 03/27/25 23:00 03/27/25 23:00 Temperature 98.2 F 98.3 F Pulse Rate [Pulse Oximeter] 85 77 Respiratory Rate 20 22 22 Blood Pressure [Le ft Arm] Blood Pressure [Ri ght Arm] 140/67 H 112/56 L Pulse Oximetry 90 90 90 Oxygen Delivery Me thod Nasal Cannula Nasal Cannula Nasal Cannula Oxygen Flow Rate 1 1.5 1.5 Fraction of Inspir ed Oxygen 0.28 03/27/25 23:30 03/28/25 03:00 03/28/25 07:42 Temperature 98.2 F Pulse Rate [Pulse Oximeter] 77 72 74 Respiratory Rate 22 18 26 H Blood Pressure [Le ft Arm] Blood Pressure [Ri ght Arm] 116/55 L Pulse Oximetry 93 Oxygen Delivery Me thod Nasal Cannula Oxygen Flow Rate Fraction of Inspir ed Oxygen 03/28/25 07:42 03/28/25 07:42 03/28/25 10:32 Temperature 97.8 F Pulse Rate [Pulse Oximeter] 74 Respiratory Rate 26 H 26 H Blood Pressure [Le ft Arm] Blood Pressure [Ri ght Arm] 122/64 Pulse Oximetry 96 96 Oxygen Delivery Me thod OxyMask OxyMask Oxygen Flow Rate 1 1 Fraction of Inspir ed Oxygen 03/28/25 11:00 03/28/25 12:32 03/28/25 14:00 Temperature Pulse Rate [Pulse Oximeter] 82 Respiratory Rate 26 H Blood Pressure [Le ft Arm] Blood Pressure [Ri ght Arm] 120/54 L Pulse Oximetry 88 Oxygen Delivery Me thod High Flow Nasal Ca nnula Oxygen Flow Rate 35 Fraction of Inspir ed Oxygen 25 25 03/28/25 15:00 03/28/25 15:00 03/28/25 15:00 Temperature Pulse Rate [Pulse Oximeter] 89 89 Respiratory Rate 26 H 26 H 26 H Blood Pressure [Le ft Arm] 119/62 Blood Pressure [Ri ght Arm] Pulse Oximetry 88 88 Oxygen Delivery Me thod High Flow Nasal Ca nnula High Flow Nasal Ca nnula Oxygen Flow Rate 35 35 Fraction of Inspir ed Oxygen 25 25 03/28/25 16:00 Temperature Pulse Rate [Pulse Oximeter] Respiratory Rate Blood Pressure [Le ft Arm] Blood Pressure [Ri ght Arm] Pulse Oximetry Oxygen Delivery Me thod Oxygen Flow Rate Fraction of Inspir ed Oxygen 25 Labs Labs: Laboratory Results - last 24 hr 03/27/25 03/28/25 03/28/25 11:09 05:39 07:59 WBC 10.74 RBC 3.58 L Hgb 11.1 L Hct 33.1 MCV 93 MCH 31 MCHC 34 Plt Count 302 VBG pH 7.364 VBG pCO2 51 H VBG pO2 39.4 VBG HCO3 29 H Sodium 130 L Potassium 3.9 Chloride 97 Carbon Dioxide 27 Anion Gap 6 L BUN 8 Creatinine 0.6 Estimated Creat Clear 30.53 Estimated GFR 90 Glucose 144 H Lactate 1.2 Calcium 7.8 L Phosphorus 2.8 Magnesium 1.7 Troponin I 0.01 C-Reactive Protein 14.6 H NT-Pro-B Natriuret Pep 1310 H 2820 H Albumin 3.0 L TSH 0.095 L Free T4 1.68 Lab Acknowledgement Test Added
--- NOTE | 2025-03-28 16:25 | PM.IMPN1 ---
Assessment and Plan Assessment and plan (1) Acute on chronic hypoxic respiratory failure: Problem comment: - multifactorial including acute bronchopneumonia, COPD, ongoing tobacco use and CHF - oxygen support via HFNC - increased management of COPD Status: Acute (2) Acute exacerbation of chronic obstructive pulmonary disease (COPD): Problem comment: - in-hospital will use nebulized budesonide and albuterol with ipratropium on a scheduled basis, plus albuterol nebulization as needed - Aerobika device use with respiratory therapy support and education - no [facility] record of PFTs Status: Acute (3) (HFpEF) heart failure with preserved ejection fraction: Problem comment: -echo 03/28/25 = shows preserved EF with dilated IVC -awaiting formal read -started lasix 20mg po -will need robust primary prevention of CAD Status: Acute (4) Bronchopneumonia: Problem comment: - meets radiographic criteria, laboratory criteria, as well as physiologic criteria with increased dyspnea and cough and history of fever at the onset 6-7 days ago - received intravenous ceftriaxone and azithromycin in the emergency department - will continue with ceftriaxone 1 g IV daily and change to doxycycline 100 mg orally twice daily - supported with nebs (Duo and steroids) - monitor CBC, venous blood gas, BNP, EKG, troponin I Status: Acute (5) Tobacco use: Problem comment: - pre contemplative about smoking cessation at this juncture - willing to try nicotine patch, after I explained that will not address her psychological and emotional dependence but only help with the physical dependence Status: Acute (6) Physical deconditioning: Problem comment: - activities as tolerated - venous thromboembolism prophylaxis, enoxaparin 30 mg subcutaneously once daily given creatinine clearance of 27 Status: Acute (7) Chronic hyponatremia: Status: Acute Subjective Date Seen: 03/28/25 Interval history: Daily Progress Note - Hospital Medicine Day #: 2 CC: COPD exacerbation, mild CHF exacerbation 24 HOUR UPDATE: Overnight she was stable. She remains significantly congested with mucus plugging and bronchial secretions in her chest as well as sinus congestion and sinus drainage. RT did evaluate today and felt the high-flow humidified oxygen would actually work well for her. And this was pursued for most of the day. She she felt less air hunger with this mode of support. Notable Labs, Micro, Rads, Interventions: She remains afebrile. Hemodynamically stable. Tachypneic. Pulse ox urge going to run a high 80s and currently she is on heated high-flow oxygen with a flow rate of 35 L and 25% FiO2. Her white blood cell count has come down nicely from 15.3-10.7. Her hemoglobin is 11.1. She has some mild hypercapnia with a CO2 this morning of 51. She has a mild hyponatremia at 130. Her glucose is 144. Otherwise her chemistries are unremarkable. Her CRP is 14.6, her BNP is 2800. Her albumin is 3.0 Her TSH is suppressed but her free T4 is normal. Blood cultures are negative to date. Objective: mild sarcopenia; cachexia. alert, insightful. Vitals: see above Lungs: significant rhonchi and wheezing throughout the lung newell. mild respiratory distress. Cardiac: S1S2. Disposition/Potential discharge - TBD Today I spent 50minutes seeing the patient, reviewing Expanse and EPIC notes/diagnostics, discussing the care plan with our care time that includes social work, PT/OT, pharmacy, RT, fpc and documenting my impressions and plan in the medical record. Exam Const: Vital Signs, click to edit/add: Vital Signs - 24 hr 03/27/25 19:57 03/27/25 23:00 03/27/25 23:00 Temperature 98.2 F 98.3 F Pulse Rate [Pulse Oximeter] 85 77 Respiratory Rate 20 22 22 Blood Pressure [Le ft Arm] Blood Pressure [Ri ght Arm] 140/67 H 112/56 L Pulse Oximetry 90 90 90 Oxygen Delivery Me thod Nasal Cannula Nasal Cannula Nasal Cannula Oxygen Flow Rate 1 1.5 1.5 Fraction of Inspir ed Oxygen 0.28 03/27/25 23:30 03/28/25 03:00 03/28/25 07:42 Temperature 98.2 F Pulse Rate [Pulse Oximeter] 77 72 74 Respiratory Rate 22 18 26 H Blood Pressure [Le ft Arm] Blood Pressure [Ri ght Arm] 116/55 L Pulse Oximetry 93 Oxygen Delivery Me thod Nasal Cannula Oxygen Flow Rate Fraction of Inspir ed Oxygen 03/28/25 07:42 03/28/25 07:42 03/28/25 10:32 Temperature 97.8 F Pulse Rate [Pulse Oximeter] 74 Respiratory Rate 26 H 26 H Blood Pressure [Le ft Arm] Blood Pressure [Ri ght Arm] 122/64 Pulse Oximetry 96 96 Oxygen Delivery Me thod OxyMask OxyMask Oxygen Flow Rate 1 1 Fraction of Inspir ed Oxygen 25 03/28/25 11:00 03/28/25 12:32 03/28/25 14:00 Temperature Pulse Rate [Pulse Oximeter] 82 Respiratory Rate 26 H Blood Pressure [Le ft Arm] Blood Pressure [Ri ght Arm] 120/54 L Pulse Oximetry 88 Oxygen Delivery Me thod High Flow Nasal Ca nnula Oxygen Flow Rate 35 Fraction of Inspir ed Oxygen 25 25 25 03/28/25 15:00 03/28/25 15:00 03/28/25 15:00 Temperature Pulse Rate [Pulse Oximeter] 89 89 Respiratory Rate 26 H 26 H 26 H Blood Pressure [Le ft Arm] 119/62 Blood Pressure [Ri ght Arm] Pulse Oximetry 88 88 Oxygen Delivery Me thod High Flow Nasal Ca nnula High Flow Nasal Ca nnula Oxygen Flow Rate 35 35 Fraction of Inspir ed Oxygen 25 25 03/28/25 16:00 Temperature Pulse Rate [Pulse Oximeter] Respiratory Rate Blood Pressure [Le ft Arm] Blood Pressure [Ri ght Arm] Pulse Oximetry Oxygen Delivery Me thod Oxygen Flow Rate Fraction of Inspir ed Oxygen 25 Labs Labs: Laboratory Results - last 24 hr 03/27/25 03/28/25 03/28/25 11:09 05:39 07:59 WBC 10.74 RBC 3.58 L Hgb 11.1 L Hct 33.1 MCV 93 MCH 31 MCHC 34 Plt Count 302 VBG pH 7.364 VBG pCO2 51 H VBG pO2 39.4 VBG HCO3 29 H Sodium 130 L Potassium 3.9 Chloride 97 Carbon Dioxide 27 Anion Gap 6 L BUN 8 Creatinine 0.6 Estimated Creat Clear 30.53 Estimated GFR 90 Glucose 144 H Lactate 1.2 Calcium 7.8 L Phosphorus 2.8 Magnesium 1.7 Troponin I 0.01 C-Reactive Protein 14.6 H NT-Pro-B Natriuret Pep 1310 H 2820 H Albumin 3.0 L TSH 0.095 L Free T4 1.68 Lab Acknowledgement Test Added
[2025-03-28] MEDS: ENOXAPARIN 30 MG/0.3ML INJ SUBCUT (16:45)
[2025-03-28] MEDS: METOPROLOL SUCCINATE (XL) 50 MG TAB PO (21:30)
--- NOTE | 2025-03-28 22:35 | PC.NURSE ---
Nursing Care Hours: [id number] Pt this shift calm and cooperative, alert and oriented. No c/o pain. Pt able to clear excess secretions after starting on high flow, tolerating it well. Switched to NC 1L during meals. Redness noted to bilat upper glutes this AM, barrier cream applied. Pt incontinent of bowel and bladder this AM d/t coughing per pt. Up in chair for meals. Refused nicotine patch. Pt expressing fear of quitting cigarettes. Septic Tank Installer spent time discussing smoking cessation tips and offering support.
[2025-03-28] MEDS: SODIUM CHLORIDE 0.9 % (FLUSH) 10 ML SYRINGE 5 ML IVF (23:20)
[2025-03-29] VITALS (18 sets, daily range): BP systolic 125–134; BP diastolic 65–78; PULSE 78–98; RESP 14–20; TEMP 36.7–36.8; O2SAT 87–95; BMI 19.1
[2025-03-29] MEDS: ALBUTEROL SULFATE 2.5 MG/3 ML VIAL.NEB NEB (00:26)
[2025-03-29] MEDS: IPRAT-ALBUT 0.5-2.5 MG/3 ML NEB 1 NEB IH ×4 (04:05→22:36)
[2025-03-29 06:13] LABS: HCO3 VBG 32 mmol/L (21-28); PCO2 VBG 50 mmHG (40-50); PO2 VBG < 30.1 mmHG (25-47); pH VBG 7.413 (7.32-7.43)
[2025-03-29 06:18] LABS: Hematocrit* 34.1 % (33.0-51.0); Hemoglobin* 11.5 gm/dL (12.0-16.0); Mean Corpuscular HGB Conc 34 gm/dL (32-36); Mean Corpuscular Hemoglobin 31 pg (26-34); Mean Corpuscular Volume 92 fL (80-100); Red Blood Count* 3.70 m/uL (4.00-5.20); White Blood Count* 18.63 K/uL (4.50-11.00)
[2025-03-29 06:38] LABS: Slide Review Reflex No
[2025-03-29 06:49] LABS: Albumin* 3.0 g/dL (3.3-5.0); Chloride* 97 mmol/L (96-114); Potassium* 3.6 mmol/L (3.6-5.1); Sodium* 131 mmol/L (135-149)
[2025-03-29 06:52] LABS: Anion Gap 5 mEq/L (7-15); Blood Urea Nitrogen* 11 mg/dL (7-30); Calcium* 8.5 mg/dL (8.4-10.6); Carbon Dioxide* 29 mmol/L (20-32); Creatinine* 0.7 mg/dL (0.5-1.5); Est. Creatinine Clearance* 30.50; Estimated Glomerular Filt Rate 86 ml/min; Glucose* 108 mg/dL (60-115)
--- NOTE | 2025-03-29 07:05 | PC.NURSE ---
[id number]: Pt pleasant, alert and oriented.?VSS. O2 sats remained above 88 and in the low 90s on 1L of o2. Pt has a coarse cough and yellow tinged sputum. Areobika and prn nebulizers in use. Pt SOB, o2 sats drop in to 80s with exacerbations, though recover within a minute. High flow settings varied, see chart. Around 0000 pt called staff to room, pt was unable to catch breath, tripoding, o2 sats dropping into 70s. Staff sat pt at edge of bed, instructed to use areokia to assist with deep breathing, chest percussion performed, neb obtained. Pt had some expectorant sputum and recovered within a few minutes. Staff sat with pt, discussed the situation, and allowed the pt to recover. Pt monitored throughout the shift. Pt has some incontinence, bedside commode utilized. Pt in bed, appears to be resting, call light within reach.?
[2025-03-29] MEDS: FUROSEMIDE 20 MG TABLET PO (07:58)
[2025-03-29] MEDS: cefTRIAXone 1 GM in 0.9 % SODIUM CHLORIDE Mini-bag 100 ML IVPB (07:59)
[2025-03-29] MEDS: DOXYCYCLINE HYCLATE 100 MG PO ×2 (08:01→20:19)
[2025-03-29] MEDS: BUDESONIDE 0.5 MG/2ML NEB NEB ×2 (09:54→20:18)
[2025-03-29] MEDS: SODIUM CHLORIDE 0.9 % (FLUSH) 10 ML SYRINGE 5 ML IVF ×2 (09:55→20:20)
--- NOTE | 2025-03-29 11:29 | P.IMPN_ITS ---
Assessment and Plan Assessment and plan (1) Acute on chronic hypoxic respiratory failure: Problem comment: - multifactorial including acute bronchopneumonia, COPD, ongoing tobacco use and mild CHF - oxygen support via HFNC - increased management of COPD (Breo plus albuterol currently) - NEEDS: tobacco cessation, muscarinic antagonists (LAMA); pulmonary rehab; sleep study, pulmonary referral for PFTs, review of care plan. Status: Acute (2) Acute exacerbation of chronic obstructive pulmonary disease (COPD): Problem comment: - in-hospital will use nebulized budesonide and albuterol with ipratropium on a scheduled basis, plus albuterol nebulization as needed - Aerobika device use with respiratory therapy support and education - no epic record of PFTs - at discharge: increased management of COPD (Breo plus albuterol currently) - NEEDS: tobacco cessation, muscarinic antagonists (LAMA); pulmonary rehab; sleep study, pulmonary referral for PFTs, review of care plan if c/w with care goals. Status: Acute (3) (HFpEF) heart failure with preserved ejection fraction: Problem comment: -echo 03/28/25 = shows preserved EF with dilated IVC, elevated right sided pressures -started lasix 20mg po (lasix niave) -needs robust primary prevention of CAD Status: Acute (4) Bronchopneumonia: Problem comment: - meets radiographic criteria, laboratory criteria, as well as physiologic criteria with increased dyspnea and cough and history of fever at the onset 6-7 days ago - received intravenous ceftriaxone and azithromycin in the emergency department - will continue with ceftriaxone 1 g IV daily and change to doxycycline 100 mg orally twice daily + Prednisone - significant nasal and chest congestion: mucinex, nasal saline and afrin. - supported with nebs (Duo and steroids) Status: Acute (5) Tobacco use: Problem comment: - pre contemplative about smoking cessation at this juncture - willing to try nicotine patch, after I explained that will not address her psychological and emotional dependence but only help with the physical dependence - pt is willing to try celexa for GAEL and increase her coping skills so cigarettes are not her go to for stress. Status: Acute (6) Physical deconditioning: Problem comment: - activities as tolerated - venous thromboembolism prophylaxis, enoxaparin 30 mg subcutaneously once daily given creatinine clearance of 27 Status: Acute (7) Chronic hyponatremia: Problem comment: -stable. monitoring. Status: Acute Subjective Date Seen: 03/29/25 Interval history: Daily Progress Note - Hospital Medicine #: 3 CC: COPD exacerbation, mild CHF exacerbation 24 HOUR UPDATE: Biggest complaint was continued nasal congestion, mucus in her chest. She did have an episode of acute hypoxia and air hunger early this morning. She sat wit h the nurses tripod and has chest percussion, nebulized treatment and felt improved after that. For that experiences she does feel more renewed in her Advair to stop smoking. We have had a nicotine patch ordered she has not yet want to wear it. She is willing to do that as morning. We talked about anxiety related to tobacco use as a coping mechanism and chronic anxiety. She is willing to trial citalopram in 10 mg PO q.day for management of chronic anxiety Notable Labs, Micro, Rads, Interventions: She remains afebrile. Hemodynamically stable. Tachypneic. Pulse ox urge going to run a high 80s and currently she is on heated high-flow oxygen with a flow rate of 35 L and 25% FiO2. Her white blood cell count review bounced up to 18.6. I suspect this jump is from the prednisone.. Her CRP is down nicely. Her hemoglobin is 11.5. Normal VBG. She has a mild hyponatremia at 131. Her glucose is 108. Otherwise her chemistries are unremarkable. Blood cultures are negative to date. Her TSH is suppressed but her free T4 is normal. Blood cultures are negative to date. Echo was done yesterday. This reflects evidence of fluid overload and right sided heart failure. Right-sided pressures are 47 mmHg plus right atrial pressure. Objective: mild sarcopenia; cachexia. alert, insightful. Tachypneic. Vitals: see above Lungs: significant rhonchi and wheezing throughout the lung newell. mild respiratory distress. Cardiac: S1S2. Disposition/Potential discharge - TBD Today I spent 50minutes seeing the patient, reviewing Expanse and EPIC notes/diagnostics, discussing the care plan with our care time that includes social work, PT/OT, pharmacy, RT, chcf and documenting my impressions and plan in the medical record. Exam Const: Vital Signs, click to edit/add: Vital Signs - 24 hr 03/28/25 12:32 03/28/25 14:00 03/28/25 15:00 Temperature Pulse Rate [Pulse Oximeter] 89 Respiratory Rate 26 H Blood Pressure [Le ft Arm] Blood Pressure [Ri ght Arm] Pulse Oximetry Oxygen Delivery Me thod Oxygen Flow Rate Fraction of Inspir ed Oxygen 25 25 03/28/25 15:00 03/28/25 15:00 03/28/25 16:00 Temperature Pulse Rate [Pulse Oximeter] 89 Respiratory Rate 26 H 26 H Blood Pressure [Le ft Arm] 119/62 Blood Pressure [Ri ght Arm] Pulse Oximetry 88 88 Oxygen Delivery Me thod High Flow Nasal Ca nnula High Flow Nasal Ca nnula Oxygen Flow Rate 35 35 Fraction of Inspir ed Oxygen 25 25 25 03/28/25 19:00 03/28/25 20:00 03/28/25 22:00 Temperature Pulse Rate [Pulse Oximeter] 95 Respiratory Rate 25 H Blood Pressure [Le ft Arm] 119/53 L Blood Pressure [Ri ght Arm] Pulse Oximetry 92 Oxygen Delivery Me thod High Flow Nasal Ca nnula Oxygen Flow Rate 35 Fraction of Inspir ed Oxygen 25 21 21 03/28/25 23:00 03/28/25 23:00 03/28/25 23:21 Temperature 98.3 F Pulse Rate [Pulse Oximeter] 71 71 Respiratory Rate 18 18 Blood Pressure [Le ft Arm] 126/62 Blood Pressure [Ri ght Arm] Pulse Oximetry 89 90 Oxygen Delivery Me thod High Flow Nasal Ca nnula OxyMask High Flow Nasal Ca nnula Oxygen Flow Rate 2 Fraction of Inspir ed Oxygen 03/29/25 00:00 03/29/25 00:32 03/29/25 02:00 Temperature Pulse Rate [Pulse Oximeter] Respiratory Rate Blood Pressure [Le ft Arm] Blood Pressure [Ri ght Arm] Pulse Oximetry Oxygen Delivery Me thod Oxygen Flow Rate Fraction of Inspir ed Oxygen 21 30 30 03/29/25 03:00 03/29/25 04:00 03/29/25 07:00 Temperature 98.2 F Pulse Rate [Pulse Oximeter] 85 Respiratory Rate 16 14 Blood Pressure [Le ft Arm] 127/67 Blood Pressure [Ri ght Arm] Pulse Oximetry 95 91 Oxygen Delivery Me thod Room Air High Flow Nasal Ca nnula Oxygen Flow Rate Fraction of Inspir ed Oxygen 25 35 03/29/25 07:47 03/29/25 07:52 03/29/25 08:00 Temperature 98.0 F Pulse Rate [Pulse Oximeter] 81 81 Respiratory Rate 14 14 Blood Pressure [Le ft Arm] Blood Pressure [Ri ght Arm] 134/78 Pulse Oximetry 91 Oxygen Delivery Me thod High Flow Nasal Ca nnula Oxygen Flow Rate Fraction of Inspir ed Oxygen 35 25 03/29/25 10:00 03/29/25 11:00 Temperature 98.1 F Pulse Rate [Pulse Oximeter] 90 Respiratory Rate 18 Blood Pressure [Le ft Arm] Blood Pressure [Ri ght Arm] 133/69 Pulse Oximetry 91 Oxygen Delivery Me thod Oxygen Flow Rate Fraction of Inspir ed Oxygen 25 Labs Labs: Laboratory Results - last 24 hr 03/29/25 05:40 WBC 18.63 H RBC 3.70 L Hgb 11.5 L Hct 34.1 MCV 92 MCH 31 MCHC 34 Plt Count 339 VBG pH 7.413 VBG pCO2 50 VBG pO2 < 30.1 VBG HCO3 32 H Sodium 131 L Potassium 3.6 Chloride 97 Carbon Dioxide 29 Anion Gap 5 L BUN 11 Creatinine 0.7 Estimated Creat Clear 30.50 Estimated GFR 86 Glucose 108 Calcium 8.5 Phosphorus 2.0 L C-Reactive Protein 6.2 H Albumin 3.0 L
[2025-03-29] MEDS: guaiFENesin 600 MG TAB.ER.12H 1200 MG PO ×2 (12:16→20:18)
--- NOTE | 2025-03-29 14:24 | RESP.RT ---
Pt on HFNC for heated humidity, Turned down flow to 15L min turned down temp to 34 degrees. FIO2@ 25% PT was not tolerating the higher flow and deated humidity, she was concerned about her running nose. BBS with diffuse Rhonchi and Exp wheezing at times. Uses aerobika well, however it can cause her wheezing to increase. If that happens, stop the aerobika TX. Will leave HFNC on for one more day.
--- NOTE | 2025-03-29 14:58 | PC.NURSE ---
[id number]: Pt. is AOX4. VSS. Afebrile. Pt. seen by RT. See RT notes. Pt. tolerating Ensure Enlive, encouraged to eat frequent small meals to conserve energy. Pt. education given on the use of petroleum products w/ O2 therapies. LSS wheezing on inspiration throughout lung newell. Pt. up in the chair. Pt. tolerating activity poorly, has increased SOB and air hunger with movement. Utilizing bedside commode to conserve energy. Uses call light appropriately; makes needs known.
[2025-03-29] MEDS: ENOXAPARIN 30 MG/0.3ML INJ SUBCUT (16:35)
--- NOTE | 2025-03-29 18:06 | PC.NURSE ---
End of shift [id number]: Pt AxOx4, pleasant, and cooperative with cares. Awaiting UA sample. Up in chair, tolerating diet/fluids well. High flow in use with sats at 90%. Denies pain/CP/SOB and states I am feeling much better after this morning. Active cough present. Pt watching television, call light within reach.
[2025-03-29] MEDS: METOPROLOL SUCCINATE (XL) 50 MG TAB PO (20:19)
[2025-03-29 20:35] LABS: S pneumo Ag Urine S. pneumo Negative (Negative)
[2025-03-30] VITALS (10 sets, daily range): BP systolic 125–152; BP diastolic 68–80; PULSE 78–98; RESP 16–18; TEMP 36.6–36.8; O2SAT 88–94
[2025-03-30] MEDS: IPRAT-ALBUT 0.5-2.5 MG/3 ML NEB 1 NEB IH ×4 (03:40→21:22)
--- NOTE | 2025-03-30 05:11 | PC.NURSE ---
[id number] Pt up in recliner at beginning of shift, tolerating HFNC, c/o pain to butt, upon assessment, noticed stage 1 PU, pt states this was there prehospitalization, RN covered with mepilex and educated pt on staying off of butt as much as possible, offloading, repositioning, pt acknowledged understanding. HFNC setting 15L, 21% 34 degrees while sleeping with O2 sats <92%, while pt awake HFNC setting 15L 25% 34degrees. Pt does not tolerate activity well, becomes SOB with productive cough. denies chest pain or headache.
[2025-03-30 06:55] LABS: Hematocrit* 34.7 % (33.0-51.0); Hemoglobin* 11.6 gm/dL (12.0-16.0); Mean Corpuscular HGB Conc 33 gm/dL (32-36); Mean Corpuscular Hemoglobin 31 pg (26-34); Mean Corpuscular Volume 92 fL (80-100); Red Blood Count* 3.77 m/uL (4.00-5.20); White Blood Count* 12.18 K/uL (4.50-11.00)
[2025-03-30 06:56] LABS: Slide Review Reflex No
[2025-03-30 06:58] LABS: HCO3 VBG 37 mmol/L (21-28); PCO2 VBG 51 mmHG (40-50); PO2 VBG < 30.1 mmHG (25-47); pH VBG 7.460 (7.32-7.43)
[2025-03-30 07:14] LABS: Chloride* 94 mmol/L (96-114); Sodium* 133 mmol/L (135-149)
[2025-03-30 07:15] LABS: Albumin* 3.0 g/dL (3.3-5.0); Potassium* 3.3 mmol/L (3.6-5.1)
[2025-03-30 07:18] LABS: Anion Gap 5 mEq/L (7-15); Blood Urea Nitrogen* 11 mg/dL (7-30); Calcium* 8.2 mg/dL (8.4-10.6); Carbon Dioxide* 34 mmol/L (20-32); Creatinine* 0.7 mg/dL (0.5-1.5); Est. Creatinine Clearance* 28.57; Estimated Glomerular Filt Rate 86 ml/min; Glucose* 91 mg/dL (60-115)
[2025-03-30] MEDS: cefTRIAXone 1 GM in 0.9 % SODIUM CHLORIDE Mini-bag 100 ML IVPB (07:54)
[2025-03-30] MEDS: BUDESONIDE 0.5 MG/2ML NEB NEB ×2 (09:36→20:55)
[2025-03-30] MEDS: guaiFENesin 600 MG TAB.ER.12H 1200 MG PO ×2 (09:58→20:54)
[2025-03-30] MEDS: FUROSEMIDE 20 MG TABLET PO (09:59)
[2025-03-30] MEDS: CITALOPRAM HYDROBROMIDE 20 MG TABLET 10 MG PO (09:59)
[2025-03-30] MEDS: DOXYCYCLINE HYCLATE 100 MG PO ×2 (10:00→20:53)
[2025-03-30] MEDS: SODIUM CHLORIDE 0.9 % (FLUSH) 10 ML SYRINGE 5 ML IVF ×2 (10:02→20:55)
[2025-03-30] MEDS: TORSEMIDE 20 MG TABLET PO (13:25)
[2025-03-30] MEDS: POTASSIUM BICARB 25 MEQ EFFERVESCENT TAB PO (13:25)
--- NOTE | 2025-03-30 14:44 | RESP.RT ---
Removed pt from [facility] this AM. BBS still congested with Rhonchi Rales and Wheezing. PT to receive some diuresis per provider. Pt on 2L NC, SPo2 94%. Will attempt to wean when BS improve. Pt reports she is now coughing stuff out. PTs cough is very harsh and congested on command, and was non productive.
--- NOTE | 2025-03-30 15:20 | P.IMPN_ITS ---
Assessment and Plan Assessment and plan (1) Acute on chronic hypoxic respiratory failure: Problem comment: - multifactorial including acute bronchopneumonia, COPD, ongoing tobacco use and mild CHF - oxygen support via HFNC - increased management of COPD (Breo plus albuterol currently) - NEEDS: tobacco cessation, muscarinic antagonists (LAMA); pulmonary rehab; sleep study, pulmonary referral for PFTs, review of care plan. Status: Acute (2) Acute exacerbation of chronic obstructive pulmonary disease (COPD): Problem comment: - in-hospital will use nebulized budesonide and albuterol with ipratropium on a scheduled basis, plus albuterol nebulization as needed. Prednisone. - Aerobika device use with respiratory therapy support and education - no epic record of PFTs - at discharge: increased management of COPD (Breo plus albuterol currently) - NEEDS: tobacco cessation, muscarinic antagonists (LAMA); pulmonary rehab; sleep study, pulmonary referral for PFTs, review of care plan if c/w with care goals. Status: Acute (3) Bronchopneumonia: Problem comment: - meets radiographic criteria, laboratory criteria, as well as physiologic criteria with increased dyspnea and cough and history of fever at the onset 6-7 days ago - received intravenous ceftriaxone and azithromycin in the emergency department - will continue with ceftriaxone 1 g IV daily and change to doxycycline 100 mg orally twice daily + Prednisone - significant nasal and chest congestion: mucinex, nasal saline and afrin. - supported with nebs (Duo and steroids) Status: Acute (4) (HFpEF) heart failure with preserved ejection fraction: Problem comment: -echo 03/28/25 = shows preserved EF with dilated IVC, elevated right sided pressures On torsemide 20 mg daily. Potassium replacement. -needs robust primary prevention of CAD Status: Acute (5) Tobacco use: Problem comment: - pre contemplative about smoking cessation at this juncture - willing to try nicotine patch, after I explained that will not address her psychological and emotional dependence but only help with the physical dependence - pt is willing to try celexa for GAEL and increase her coping skills so cigarettes are not her go to for stress. Status: Acute (6) Physical deconditioning: Problem comment: - activities as tolerated - venous thromboembolism prophylaxis, enoxaparin 30 mg subcutaneously once daily given creatinine clearance of 27 Status: Acute (7) Chronic hyponatremia: Problem comment: -stable. monitoring. Status: Acute Plan Continue in hospital for treatment of COPD and CHF causing hypoxic respiratory failure. Anticipate discharge to home when she is able to wean off of oxygen. Total Time Spent Total Time Spent: Total time spent today is 55 minutes in reviewing outside records, coordination of care, discussion with patient ongoing evaluation management of respiratory failure, COPD and heart failure Subjective Date Seen: 03/30/25 Interval history: Jenelle Manuel is a 84 year old woman who presents to the emergency department with a 6-7 day history of increasing dyspnea with exertion, productive cough, decreased appetite. She has lived in her own home alone for the past 11 months. Previously she lived in her own home with her daughter and son-in-law, who moved out 11 months ago. Has felt increased sense of anxiety and stress since living alone. She tells me she uses smoking as a means to decrease her sense of anxiety. She says she gets nervous ?really easy. ? When she does smoke she takes 2-3 puffs of a cigarette, puts out the cigarette in later does the same thing and smokes 3-4 cigarettes per day in this fashion. He eventually wants to continue to try to cut down on her smoking but not ready to do so any more than she already has at this time. 6-7 days ago, she had marked worsening of her health due to increase cough with sputum production, increasing dyspnea with exertion, a sense of feeling feverish although she never took her temperature. Her appetite has declined significantly since that time as well. Does not believe her condition has impr nessa at all over the last 6-7 days and has become increasingly anxious about the same. Finally this morning she decided that she had had enough and called her daughter, Syl, who lives in [facility], who recommended that the patient present to the emergency department for further assessment. Has not had any fevers since that 1st and 2nd day. Other symptoms progressively increasing such that she can hardly even walk now due to dyspnea. Ordinarily does not have dyspnea with conversation but notes increasing dyspnea with conversation. Denies edema. Denies chest heaviness, pressure, tightness, pain. Denies syncope or near-syncope. Has had decreased oral intake due to decreased interest in eating. 03/30/2025: She has been treated for COPD exacerbation with inhaled broncho dilators systemic corticosteroids and antibiotics, doxycycline and ceftriaxone. She was also suspected to have heart failure contributing to her acute dyspnea and has been started on furosemide for that. Echocardiogram showed preserved ejection fraction. She reports feeling significantly better today and is weaned off of high-flow oxygen down to nasal cannula. Exam Narrative: Exam Narrative: She is alert and appears in no distress. Mood and affect are bright and she is quite animated and talkative today. Respirations with diffuse expiratory wheezes and rhonchi. She has prolonged expiratory phase and decreased breath sounds throughout. Cardiovascular: S1, S2, regular rate and rhythm. Abdomen: Bowel sounds active. Abdomen is soft without tenderness or mass. Extremities without edema. Good peripheral perfusion. Const: Vital Signs, click to edit/add: Vital Signs - 24 hr 03/29/25 16:00 03/29/25 17:54 03/29/25 19:00 Temperature Pulse Rate [Pulse Oximeter] 98 Respiratory Rate 20 Blood Pressure [Le ft Arm] 129/66 Blood Pressure [Ri ght Arm] Pulse Oximetry 90 Oxygen Delivery Me thod High Flow Nasal Ca nnula Oxygen Flow Rate 15 Fraction of Inspir ed Oxygen 25 25 03/29/25 19:57 03/29/25 22:00 03/29/25 23:00 Temperature Pulse Rate [Pulse Oximeter] Respiratory Rate 20 Blood Pressure [Le ft Arm] Blood Pressure [Ri ght Arm] Pulse Oximetry Oxygen Delivery Me thod Oxygen Flow Rate Fraction of Inspir ed Oxygen 25 25 03/29/25 23:00 03/29/25 23:00 03/30/25 00:00 Temperature 98.1 F Pulse Rate [Pulse Oximeter] 78 Respiratory Rate 16 16 Blood Pressure [Le ft Arm] Blood Pressure [Ri ght Arm] 132/65 Pulse Oximetry 94 90 Oxygen Delivery Me thod High Flow Nasal Ca nnula High Flow Nasal Ca nnula Oxygen Flow Rate 15 15 Fraction of Inspir ed Oxygen 25 25 25 03/30/25 01:54 03/30/25 03:00 03/30/25 04:00 Temperature 98.1 F Pulse Rate [Pulse Oximeter] 78 Respiratory Rate 16 Blood Pressure [Le ft Arm] Blood Pressure [Ri ght Arm] 136/80 Pulse Oximetry 91 Oxygen Delivery Me thod High Flow Nasal Ca nnula Oxygen Flow Rate 15 Fraction of Inspir ed Oxygen 21 21 21 03/30/25 05:09 03/30/25 07:00 03/30/25 07:00 Temperature 97.9 F Pulse Rate [Pulse Oximeter] 79 79 Respiratory Rate 16 16 Blood Pressure [Le ft Arm] Blood Pressure [Ri ght Arm] 139/68 Pulse Oximetry 90 Oxygen Delivery Me thod High Flow Nasal Ca nnula Oxygen Flow Rate 15 Fraction of Inspir ed Oxygen 21 21 03/30/25 07:00 03/30/25 08:00 03/30/25 10:00 Temperature Pulse Rate [Pulse Oximeter] Respiratory Rate 16 Blood Pressure [Le ft Arm] Blood Pressure [Ri ght Arm] Pulse Oximetry 90 Oxygen Delivery Me thod High Flow Nasal Ca nnula Oxygen Flow Rate 15 Fraction of Inspir ed Oxygen 21 21 15 03/30/25 11:00 Temperature 98 F Pulse Rate [Pulse Oximeter] 82 Respiratory Rate 16 Blood Pressure [Le ft Arm] Blood Pressure [Ri ght Arm] 152/73 H Pulse Oximetry 92 Oxygen Delivery Me thod Nasal Cannula Oxygen Flow Rate 2 Fraction of Inspir ed Oxygen Labs Labs: Laboratory Results - last 24 hr 03/29/25 03/30/25 03/30/25 19:44 06:14 06:57 WBC 12.18 H RBC 3.77 L Hgb 11.6 L Hct 34.7 MCV 92 MCH 31 MCHC 33 Plt Count 347 VBG pH 7.460 H VBG pCO2 51 H VBG pO2 < 30.1 VBG HCO3 37 H Sodium 133 L Potassium 3.3 L Chloride 94 L Carbon Dioxide 34 H Anion Gap 5 L BUN 11 Creatinine 0.7 Estimated Creat Clear 28.57 Estimated GFR 86 Glucose 91 Calcium 8.2 L Phosphorus 2.2 L Albumin 3.0 L Urine L. pneumophilia Ag L. pneumo Negative Urine Strep pneumoniae Ag S. pneumo Negative Lab Acknowledgement Test Added
[2025-03-30 15:59] LABS: Fecal Occult Blood* Positive (Negative)
[2025-03-30] MEDS: OMEPRAZOLE 20 MG CAPSULE DR PO (18:34)
--- NOTE | 2025-03-30 19:40 | PC.NURSE ---
Shift Summary: Patient pleasant and cooperative. Up with SBA/walker to BSC. Increased SOB with ambulation, recovers quickly once back in bed. Requiring 1L/NC, taken off hiflow this morning. Had x1 dark tarry BM this afternoon, updated and new order for fecal occult blood. Nicotine on left shoulder, right shoulder patch removed. Continues to have productive cough with sputum. Tolerating regular diet, ensure with meals. Denies pain.
[2025-03-30] MEDS: METOPROLOL SUCCINATE (XL) 50 MG TAB PO (20:54)
[2025-03-30] MEDS: MELATONIN 3 MG TABLET PO (23:15)
[2025-03-31] VITALS (7 sets, daily range): BP systolic 109–138; BP diastolic 62–80; PULSE 70–104; RESP 16–20; TEMP 36.5–36.7; O2SAT 89–93
--- NOTE | 2025-03-31 00:25 | PC.NURSE ---
Shift note ([id number]): Patient pleasant, alert and oriented. Ambulates with walker and stand by assist of one.?Reports has SOB at times. O2 sats 94% on 1 LPM. Productive cough with yellow thick phlegm. [id number] called for update. ?
[2025-03-31] MEDS: IPRAT-ALBUT 0.5-2.5 MG/3 ML NEB 1 NEB IH ×4 (04:40→21:26)
--- NOTE | 2025-03-31 05:53 | PC.NURSE ---
patient vitals stable overnight, desats with activity. Lung sounds coarse but non labored. Slept some, did not like how melatonin made her feel. able to pivot to commode with x1 assist. A&O x4 pleasant and over all had a good night.
[2025-03-31 06:40] LABS: Hematocrit* 40.9 % (33.0-51.0); Hemoglobin* 13.5 gm/dL (12.0-16.0); Immature Granulocytes Pct Auto 1.0 %; Mean Corpuscular HGB Conc 33 gm/dL (32-36); Mean Corpuscular Hemoglobin 31 pg (26-34); Mean Corpuscular Volume 93 fL (80-100); RDW Coefficient of Variation % 12.2 % (11.5-15.5); Red Blood Count* 4.41 m/uL (4.00-5.20); White Blood Count* 13.32 K/uL (4.50-11.00)
[2025-03-31 06:47] LABS: Chloride* 82 mmol/L (96-114)
[2025-03-31 06:48] LABS: Potassium* 3.4 mmol/L (3.6-5.1); Sodium* 129 mmol/L (135-149)
[2025-03-31 06:49] LABS: Immature Granulocytes Abs Auto 0.10 K/uL (0.00-0.30); Lymphocytes Absolute Auto 3.40 K/uL (0.90-2.90); Slide Review Reflex No
[2025-03-31 06:51] LABS: Anion Gap 7 mEq/L (7-15); Blood Urea Nitrogen* 15 mg/dL (7-30); Calcium* 8.8 mg/dL (8.4-10.6); Carbon Dioxide* 40 mmol/L (20-32); Creatinine* 0.9 mg/dL (0.5-1.5); Est. Creatinine Clearance* 27.67; Estimated Glomerular Filt Rate 64 ml/min; Glucose* 103 mg/dL (60-115)
[2025-03-31] MEDS: POTASSIUM CHLORIDE 10 MEQ CAPSULE ER PO (08:18)
[2025-03-31] MEDS: cefTRIAXone 1 GM in 0.9 % SODIUM CHLORIDE Mini-bag 100 ML IVPB (08:18)
[2025-03-31] MEDS: TORSEMIDE 20 MG TABLET PO ×2 (08:19→08:28)
[2025-03-31] MEDS: OMEPRAZOLE 20 MG CAPSULE DR PO ×2 (08:24→19:05)
[2025-03-31] MEDS: POTASSIUM CHLORIDE 10 MEQ CAPSULE ER 20 MEQ PO (08:24)
[2025-03-31] MEDS: guaiFENesin 600 MG TAB.ER.12H 1200 MG PO ×2 (08:28→21:01)
[2025-03-31] MEDS: DOXYCYCLINE HYCLATE 100 MG PO ×2 (08:28→21:00)
[2025-03-31] MEDS: CITALOPRAM HYDROBROMIDE 20 MG TABLET 10 MG PO (08:28)
[2025-03-31] MEDS: SODIUM CHLORIDE 0.9 % (FLUSH) 10 ML SYRINGE 5 ML IVF ×2 (08:28→21:03)
[2025-03-31] MEDS: BUDESONIDE 0.5 MG/2ML NEB NEB ×2 (08:28→21:03)
--- NOTE | 2025-03-31 12:56 | PM.IMPN1 ---
Assessment and Plan Assessment and plan (1) Acute on chronic hypoxic respiratory failure: Problem comment: - multifactorial including acute bronchopneumonia, COPD and/or other interstitial lung disease, ongoing tobacco use and mild CHF - oxygen support via HFNC - increased management of COPD (Breo plus albuterol currently) - NEEDS: tobacco cessation, muscarinic antagonists (LAMA); pulmonary rehab; sleep study, pulmonary referral for PFTs, review of care plan. Status: Acute (2) Acute exacerbation of chronic obstructive pulmonary disease (COPD): Problem comment: - in-hospital will use nebulized budesonide and albuterol with ipratropium on a scheduled basis, plus albuterol nebulization as needed. Prednisone. - Aerobika device use with respiratory therapy support and education - no epic record of PFTs - at discharge: increased management of COPD (Breo plus albuterol currently) - NEEDS: tobacco cessation, muscarinic antagonists (LAMA); pulmonary rehab; sleep study, pulmonary referral for PFTs, review of care plan if c/w with care goals. Status: Acute (3) Bronchopneumonia: Problem comment: - meets radiographic criteria, laboratory criteria, as well as physiologic criteria with increased dyspnea and cough and history of fever at the onset 6-7 days ago - received intravenous ceftriaxone and azithromycin in the emergency department - will continue with ceftriaxone 1 g IV daily and change to doxycycline 100 mg orally twice daily + Prednisone - significant nasal and chest congestion: mucinex, nasal saline and afrin. - supported with nebs (Duo and steroids) Status: Acute (4) (HFpEF) heart failure with preserved ejection fraction: Problem comment: -echo 03/28/25 = shows preserved EF with dilated IVC, elevated right sided pressures On torsemide 20 mg daily. Potassium replacement. -needs robust primary prevention of CAD Status: Acute (5) Tobacco use: Problem comment: - pre contemplative about smoking cessation at this juncture - willing to try nicotine patch, after I explained that will not address her psychological and emotional dependence but only help with the physical dependence - pt is willing to try celexa for AGEL and increase her coping skills so cigarettes are not her go to for stress. Status: Acute (6) Physical deconditioning: Problem comment: - activities as tolerated - venous thromboembolism prophylaxis, enoxaparin 30 mg subcutaneously once daily given creatinine clearance of 27 Status: Acute (7) Chronic hyponatremia: Problem comment: -stable. monitoring. Status: Acute (8) GI bleeding: Problem comment: Heme-positive dark stool obtained 03/30/2025. Hemoglobin and vital signs stable. Consider upper endoscopy. Start PPI. Status: Acute Plan Continue in hospital for ongoing evaluation management of hypoxic respiratory failure and COPD. Evaluate and treat GI bleeding. Total Time Spent Total Time Spent: Total time spent today is 40 minutes in coordination of care and discussing with patient and other providers ongoing management of respiratory failure and GI bleeding. Subjective Date Seen: 03/31/25 Interval history: Jenelle Manuel is a 84 year old woman who presents to the emergency department with a 6-7 day history of increasing dyspnea with exertion, productive cough, decreased appetite. She has lived in her own home alone for the past 11 months. Previously she lived in her own home with her daughter and son-in-law, who moved out 11 months ago. Has felt increased sense of anxiety and stress since living alone. She tells me she uses smoking as a means to decrease her sense of anxiety. She says she gets nervous ?really easy. ? When she does smoke she takes 2-3 puffs of a cigarette, puts out the cigarette in later does the same thing and smokes 3-4 cigarettes per day in this fashion. He eventually wants to continue to try to cut down on her smoking but not ready to do so any more than she already has at this time. 6-7 days ago, she had marked worsening of her health due to increase cough with sputum production, increasing dyspnea with exertion, a sense of feeling feverish although she never took her temperature. Her appetite has declined significantly since that time as well. Does not believe her condition has improved at all over the last 6-7 days and has become increasingly anxious about the same. Finally this morning she decided that she had had enough and called her daughter, Syl, who lives in [facility], who recommended that the patient present to the emergency department for further assessment. Has not had any fevers since that 1st and 2nd day. Other symptoms progressively increasing such that she can hardly even walk now due to dyspnea. Ordinarily does not have dyspnea with conversation but notes increasing dyspnea with conversation. Denies edema. Denies chest heaviness, pressure, tightness, pain. Denies syncope or near-syncope. Has had decreased oral intake due to decreased interest in eating. 03/30/2025: She has been treated for COPD exacerbation with inhaled bronchodilators systemic corticosteroids and antibiotics, doxycycline and ceftriaxone. She was also suspected to have heart failure contributing to her acute dyspnea and has been started on furosemide for that. Echocardiogram showed preserved ejection fraction. She reports feeling significantly better today and is weaned off of high-flow oxygen down to nasal cannula. 03/31/2025: Patient reports her breathing is a little better today. Nursing staff note that she had very dark stool yesterday and checked stool guaiac which was heme positive. Lovenox shots were discontinued. Hemoglobin has been stable. No previous history of GI bleeding. No previous history of endoscopy or colonoscopy. She denies any abdominal symptoms. Exam Narrative: Exam Narrative: She is alert and appears in no distress. She gives her own history. Respirations with still diminished breath sounds and prolonged expiratory phase. It modestly improved breath sounds compared to yesterday. Significantly less rhonchi and wheezing noted today. Cardiovascular: S1, S2, regular rate and rhythm. Abdomen: Bowel sounds active. Abdomen is soft without tenderness or mass. Extremities without edema. Const: Vital Signs, click to edit/add: Vital Signs - 24 hr 03/30/25 15:00 03/30/25 15:03/30/25 15:00 Temperature 98 F Pulse Rate [Pulse Oximeter] 92 92 Respiratory Rate 18 18 18 Blood Pressure [Le ft Arm] 136/72 Blood Pressure [Ri ght Arm] Pulse Oximetry 90 90 Oxygen Delivery Me thod Room Air Nasal Can nula Room Air Nasal Can nula Oxygen Flow Rate 1 1 Fraction of Inspir ed Oxygen 15 03/30/25 20:42 03/31/25 00:25 03/31/25 00:25 Temperature 98.2 F 97.7 F Pulse Rate [Pulse Oximeter] 98 104 H Respiratory Rate 17 20 20 Blood Pressure [Le ft Arm] Blood Pressure [Ri ght Arm] 125/70 138/80 Pulse Oximetry 94 93 93 Oxygen Delivery Me thod [place] Nasal Ca nnula Room Air Nasal [place] n[place] Nasal Cannula Oxygen Flow Rate 1 1 1 Fraction of Inspir ed Oxygen 24 03/31/25 00:25 03/31/25 03:00 03/31/25 07:00 Temperature 97.7 F Pulse Rate [Pulse Oximeter] 70 83 Respiratory Rate 20 16 18 Blood Pressure [Le ft Arm] Blood Pressure [Ri ght Arm] 135/71 Pulse Oximetry 92 Oxygen Delivery Me thod Nasal Cannula Oxygen Flow Rate 1 Fraction of Inspir ed Oxygen 03/31/25 07:00 03/31/25 07:00 03/31/25 11:00 Temperature 98.0 F 98.0 F Pulse Rate [Pulse Oximeter] 83 84 Respiratory Rate 18 18 18 Blood Pressure [Le ft Arm] 109/69 Blood Pressure [Ri ght Arm] 138/78 Pulse Oximetry 90 90 91 Oxygen Delivery Me thod Nasal Cannula Nasal Cannula Nasal Cannula Oxygen Flow Rate 1 1 1 Fraction of Inspir ed Oxygen Documenting provider has reviewed patient's vital signs: yes Labs Labs: Laboratory Results - last 24 hr 03/30/25 03/30/25 03/31/25 06:14 15:30 05:53 WBC 13.32 H RBC 4.41 Hgb 13.5 Hct 40.9 MCV 93 MCH 31 MCHC 33 RDW Coeff of Gena 12.2 Plt Count 358 Neut % (Auto) 65.4 Lymph % (Auto) 25.2 [place] % (Auto) 7.9 Eos % (Auto) 0.3 Baso % (Auto) 0.2 Neut # (Auto) 8.70 H Lymph # (Auto) 3.40 H [place] # (Auto) 1.10 H Eos # (Auto) 0.00 Baso # (Auto) 0.00 Abs Immat Gran (auto) 0.10 Imm/Tot Granulo (auto) 1.0 Sodium 129 L Potassium 3.4 L Chloride 82 L Carbon Dioxide 40 H Anion Gap 7 BUN 15 Creatinine 0.9 Estimated Creat Clear 27.67 Estimated GFR 64 Glucose 103 Calcium 8.8 Magnesium 1.5 T3 71 L Stool Occult Blood Positive A Lab Acknowledgement 03/31/25 08:11 WBC RBC Hgb Hct MCV MCH MCHC RDW Coeff of Gena Plt Count Neut % (Auto) Lymph % (Auto) [place] % (Auto) Eos % (Auto) Baso % (Auto) Neut # (Auto) Lymph # (Auto) [place] # (Auto) Eos # (Auto) Baso # (Auto) Abs Immat Gran (auto) Imm/Tot Granulo (auto) Sodium Potassium Chloride Carbon Dioxide Anion Gap BUN Creatinine Estimated Creat Clear Estimated GFR Glucose Calcium Magnesium T3 Stool Occult Blood Lab Acknowledgement Test Added
--- NOTE | 2025-03-31 14:35 | RESP.RT ---
Pt BBS with slight improvement in aeration today. cough with increased sputum production, yellow thick sputum. Pt should be increasing ambulation and time out of bed. Suspect she may require home oxygen. Will qualify her tomorrow if indicated.
[2025-03-31] MEDS: METOPROLOL SUCCINATE (XL) 50 MG TAB PO (21:01)
[2025-04-01 03:00] VITALS: BP 129/76; PULSE 77; RESP 18; TEMP 36.6; O2SAT 92
[2025-04-01] MEDS: OMEPRAZOLE 20 MG CAPSULE DR PO ×2 (06:45→18:17)
[2025-04-01 07:00] VITALS: BP 128/76; PULSE 71; RESP 18; TEMP 36.6; O2SAT 91
--- NOTE | 2025-04-01 07:46 | PC.NURSE ---
Shift note ([id number]): Patient pleasant, alert and oriented. Stand by assist to bathroom. O2 sats 89-92% on 0.5 LPM. Denied pain. Slept well through the night.?
[2025-04-01] MEDS: cefTRIAXone 1 GM in 0.9 % SODIUM CHLORIDE Mini-bag 100 ML IVPB (08:01)
[2025-04-01] MEDS: CITALOPRAM HYDROBROMIDE 20 MG TABLET 10 MG PO (08:13)
[2025-04-01] MEDS: guaiFENesin 600 MG TAB.ER.12H 1200 MG PO ×2 (08:14→20:15)
[2025-04-01] MEDS: DOXYCYCLINE HYCLATE 100 MG PO ×2 (08:14→20:16)
[2025-04-01 08:53] LABS: HCO3 VBG 38 mmol/L (21-28); PCO2 VBG 46 mmHG (40-50); PO2 VBG 30.7 mmHG (25-47); pH VBG 7.521 (7.32-7.43)
[2025-04-01 08:55] LABS: Hematocrit* 40.5 % (33.0-51.0); Hemoglobin* 13.6 gm/dL (12.0-16.0); Immature Granulocytes Abs Auto 0.10 K/uL (0.00-0.30); Immature Granulocytes Pct Auto 0.6 %; Lymphocytes Absolute Auto 3.20 K/uL (0.90-2.90); Mean Corpuscular HGB Conc 34 gm/dL (32-36); Mean Corpuscular Hemoglobin 31 pg (26-34); Mean Corpuscular Volume 91 fL (80-100); RDW Coefficient of Variation % 12.4 % (11.5-15.5); Red Blood Count* 4.46 m/uL (4.00-5.20); White Blood Count* 15.51 K/uL (4.50-11.00)
[2025-04-01 08:56] LABS: Slide Review Reflex No
[2025-04-01] MEDS: POTASSIUM CHLORIDE 10 MEQ CAPSULE ER 20 MEQ PO (09:19)
[2025-04-01] MEDS: SODIUM CHLORIDE 0.9 % (FLUSH) 10 ML SYRINGE 5 ML IVF ×3 (09:21→20:17)
[2025-04-01 09:35] LABS: Chloride* 81 mmol/L (96-114); Potassium* 4.2 mmol/L (3.6-5.1)
[2025-04-01 09:38] LABS: Blood Urea Nitrogen* 18 mg/dL (7-30); Creatinine* 0.8 mg/dL (0.5-1.5); Est. Creatinine Clearance* 26.62; Estimated Glomerular Filt Rate 74 ml/min
[2025-04-01 09:39] LABS: Anion Gap 4 mEq/L (7-15); Calcium* 9.1 mg/dL (8.4-10.6); Carbon Dioxide* 37 mmol/L (20-32); Glucose* 93 mg/dL (60-115)
[2025-04-01 09:43] LABS: Sodium* 122 mmol/L (135-149)
--- NOTE | 2025-04-01 10:53 | P.ANES_ITS ---
Anesthesia Charges Start Date/Time Anesthesia Start Date: 04/01/25 Anesthesia Start Time: 10:28 Stop Date/Time Anesthesia Stop Date: 04/01/25 Anesthesia Stop Time: 10:50 Summary Extremes of Age - Over 70 or under 1: BENCH LATHE OPERATOR Coding CPT Codes CPT Codes: ANES UPR GI NDSC PX NOS - 77982 ([id number]) P3 - PATIENT W/SEVERE SYS DISEASE, QZ - BENCH LATHE OPERATOR SVC W/O SUPERVISOR PLEATING BY Additional Codes: Summary - Extremes of Age - Over 70 or under 1: BENCH LATHE OPERATOR ([id number])
--- NOTE | 2025-04-01 10:53 | W.ANESCHARGE ---
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
[2025-04-01 11:00] VITALS: BP 99/56; PULSE 74; RESP 18; TEMP 36.6; O2SAT 87
--- NOTE | 2025-04-01 11:30 | REH.OT ---
Per MD, pt and family had questions about shower chairs. OT provides handout of types of shower chairs/bath benches. Education on DME supplies and insurance process through Medicare. Pt and family encouraged to check with supplementary insurance if she has coverage on DME.
[2025-04-01] MEDS: 3 % SODIUM CHLORIDE 500 ml 30 ML IV (11:40)
[2025-04-01] MEDS: MAGNESIUM SULF 1 G/100 ML 1 GM/100 ML PIGGYBACK IVPB (13:16)
--- NOTE | 2025-04-01 13:39 | RESP.RT ---
PT eating in chair. Spot check oxygen was 89% on RA. Spoke to pt for 20 minutes about using oxygen at home. Broke it down into night use, use with activity, use while sitting. Pt states she will not use it at any of these times. Explained benefits and risks to her of using and not using the oxygen. She is firm in her decision to not use home oxygen. Talked/Educated pt on energy conservation. She was engaged in this conversation, and sited examples of how she would do this at her daughters home.
--- NOTE | 2025-04-01 14:04 | P.IMPN_ITS ---
Assessment and Plan Assessment and plan (1) Acute on chronic hypoxic respiratory failure: Problem comment: - multifactorial including acute bronchopneumonia, COPD and/or other interstitial lung disease, ongoing tobacco use and mild CHF - oxygen support via HFNC - increased management of COPD (Breo plus albuterol currently) - NEEDS: tobacco cessation, muscarinic antagonists (LAMA); pulmonary rehab; sleep study, pulmonary referral for PFTs, review of care plan. Continuing to improve Status: Acute (2) Acute exacerbation of chronic obstructive pulmonary disease (COPD): Problem comment: - in-hospital will use nebulized budesonide and albuterol with ipratropium on a scheduled basis, plus albuterol nebulization as needed. Prednisone. - Aerobika device use with respiratory therapy support and education - no epic record of PFTs - at discharge: increased management of COPD (Breo plus albuterol currently) - NEEDS: tobacco cessation, muscarinic antagonists (LAMA); pulmonary rehab; sleep study, pulmonary referral for PFTs, review of care plan if c/w with care goals. Continuing to improve Status: Acute (3) Bronchopneumonia: Problem comment: - meets radiographic criteria, laboratory criteria, as well as physiologic criteria with increased dyspnea and cough and history of fever at the onset 6-7 days ago - received intravenous ceftriaxone and azithromycin in the emergency department - will continue with ceftriaxone 1 g IV daily and change to doxycycline 100 mg orally twice daily + Prednisone - significant nasal and chest congestion: mucinex, nasal saline and afrin. - supported with nebs (Duo and steroids) Status: Acute (4) (HFpEF) heart failure with preserved ejection fraction: Problem comment: -echo 03/28/25 = shows preserved EF with dilated IVC, elevated right sided pressures On torsemide 20 mg daily. Potassium replacement. -needs robust primary prevention of CAD Status: Acute (5) Tobacco use: Problem comment: - pre contemplative about smoking cessation at this juncture - willing to try nicotine patch, after I explained that will not address her psychological and emotional dependence but only help with the physical dependence - pt is willing to try celexa for GAEL and increase her coping skills so cigarettes are not her go to for stress. Status: Acute (6) Physical deconditioning: Problem comment: - activities as tolerated - venous thromboembolism prophylaxis, enoxaparin 30 mg subcutaneously once daily given creatinine clearance of 27 Status: Acute (7) Chronic hyponatremia: Problem comment: Sodium 130 on admission now dropped to 122. Fluid restriction, sodium chloride and monitor. Status: Acute (8) GI bleeding: Problem comment: Heme-positive dark stool obtained 03/30/2025. Hemoglobin and vital signs stable. EGD shows small gastric ulcers without active bleeding. Continue PPI. Await biopsies. Status: Acute Plan Continue in-hospital to manage respiratory failure, hyponatremia, GI bleeding. Probable discharge home with daughter tomorrow if stable. Total Time Spent Total Time Spent: Total time spent today is 55 minutes in coordination of care and discussing with patient, daughter and other providers ongoing management of these multiple medical problems Subjective Date Seen: 04/01/25 Interval history: Jenelle Manuel is a 84 year old woman who presents to the emergency department with a 6-7 day history of increasing dyspnea with exertion, productive cough, decreased appetite. She has lived in her own home alone for the past 11 months. Previously she lived in her own home with her daughter and son-in-law, who moved out 11 months ago. Has felt increased sense of anxiety and stress since living alone. She tells me she uses smoking as a means to decrease her sense of anxiety. She says she gets nervous ?really easy. ? When she does smoke she takes 2-3 puffs of a cigarette, puts out the cigarette in later does the same thing and smokes 3-4 cigarettes per day in this fashion. He eventually wants to continue to try to cut down on her smoking but not ready to do so any more than she already has at this time. 6-7 days ago, she had marked worsening of her health due to increase cough with sputum production, increasing dyspnea with exertion, a sense of feeling feverish although she never took her temperature. Her appetite has declined significantly since that time as well. Does not believe her condition has improved at all over the last 6-7 days and has become increasingly anxious about the same. Finally this morning she decided that she had had enough and called her daughter, Syl, who lives in [facility], who recommended that the patient present to the emergency department for further assessment. Has not had any fevers since that 1st and 2nd day. Other symptoms progressively increasing such that she can hardly even walk now due to dyspnea. Ordinarily does not have dyspnea with conversation but notes increasing dyspnea with conversation. Denies edema. Denies chest heaviness, pressure, tightness, pain. Denies syncope or near-syncope. Has had decreased oral intake due to decreased interest in eating. 03/30/2025: She has been treated for COPD exacerbation with inhaled bronchodilators systemic corticosteroids and antibiotics, doxycycline and ceftriaxone. She was also suspected to have heart failure contributing to her acute dyspnea and has been started on furosemide for that. Echocardiogram showed preserved ejection fraction. She reports feeling significantly better today and is weaned off of high-flow oxygen down to nasal cannula. 03/31/2025: Patient reports her breathing is a little better today. Nursing staff note that she had very dark stool yesterday and checked stool guaiac which was heme positive. Lovenox shots were discontinued. Hemoglobin has been stable. No previous history of GI bleeding. No previous history of endoscopy or colonoscopy. She denies any abdominal symptoms. 04/01/2025: Patient has weaned off oxygen overnight. Her O2 sats are now 88-92% on room air at rest. She reports her breathing is unlabored. She reports her stools this morning were not as dark is a had been previously. She otherwise reports generally feeling well. She is anxious about going home. Her daughter is here today and plans to take her home at discharge. She had upper endoscopy today to evaluate for her Hemoccult-positive stools and this showed 2 small gastric ulcers without active bleeding. Exam Narrative: Exam Narrative: She is alert and appears in no distress. Mild increased work of breathing. Respirations with decreased breath sounds. Air exchange is improved. Expiratory phase is better. Still mild generalized wheezing. Cardiovascular: S1, S2, regular rate and rhythm. Abdomen is soft without tenderness. Extremities without edema. Const: Vital Signs, click to edit/add: Vital Signs - 24 hr 03/31/25 15:00 03/31/25 15:00 03/31/25 15:00 Temperature 98.0 F Pulse Rate [Pulse Oximeter] 91 89 Respiratory Rate 18 18 18 Blood Pressure [Le ft Arm] 114/62 Blood Pressure [Ri ght Arm] Pulse Oximetry 89 89 Oxygen Delivery Me thod Nasal Cannula Nasal Cannula Oxygen Flow Rate 0.5 0.5 03/31/25 20:51 03/31/25 22:53 03/31/25 22:53 Temperature 98.1 F 98.1 F Pulse Rate [Pulse Oximeter] 89 80 Respiratory Rate 19 16 Blood Pressure [Le ft Arm] 124/67 130/77 Blood Pressure [Ri ght Arm] Pulse Oximetry 90 91 92 Oxygen Delivery Me thod Nasal Cannula Nasal Cannula Nasal Cannula Oxygen Flow Rate 0.5 0.5 0.5 04/01/25 03:00 04/01/25 07:00 04/01/25 07:00 Temperature 97.8 F Pulse Rate [Pulse Oximeter] 77 71 Respiratory Rate 18 18 18 Blood Pressure [Le ft Arm] Blood Pressure [Ri ght Arm] 129/76 Pulse Oximetry 92 91 Oxygen Delivery Me thod Nasal Cannula Room Air Oxygen Flow Rate 0.5 04/01/25 07:00 04/01/25 11:00 Temperature 97.8 F 97.8 F Pulse Rate [Pulse Oximeter] 71 74 Respiratory Rate 18 18 Blood Pressure [Le ft Arm] Blood Pressure [Ri ght Arm] 128/76 99/56 L Pulse Oximetry 91 87 L Oxygen Delivery Me thod Room Air Room Air Oxygen Flow Rate Documenting provider has reviewed patient's vital signs: yes Labs Labs: Laboratory Results - last 24 hr 04/01/25 08:44 WBC 15.51 H RBC 4.46 Hgb 13.6 Hct 40.5 MCV 91 MCH 31 MCHC 34 RDW Coeff of Gena 12.4 Plt Count 339 Neut % (Auto) 70.2 Lymph % (Auto) 20.5 Garfield % (Auto) 7.8 Eos % (Auto) 0.8 Baso % (Auto) 0.1 Neut # (Auto) 10.90 H Lymph # (Auto) 3.20 H Garfield # (Auto) 1.20 H Eos # (Auto) 0.10 Baso # (Auto) 0.00 Abs Immat Gran (auto) 0.10 Imm/Tot Granulo (auto) 0.6 VBG pH 7.521 H VBG pCO2 46 VBG pO2 30.7 VBG HCO3 38 H Sodium 122 L* Potassium 4.2 Chloride 81 L Carbon Dioxide 37 H Anion Gap 4 L BUN 18 Creatinine 0.8 Estimated Creat Clear 26.62 Estimated GFR 74 Glucose 93 Calcium 9.1
[2025-04-01 15:00] VITALS: BP 110/63; PULSE 79; RESP 18; TEMP 36.4; O2SAT 87
[2025-04-01 15:22] LABS: Sodium* 121 mmol/L (135-149)
[2025-04-01] MEDS: 3 % SODIUM CHLORIDE 500 ml 50 ML 33.33 ML IV ×2 (16:04→23:37)
[2025-04-01] MEDS: IPRAT-ALBUT 0.5-2.5 MG/3 ML NEB 1 NEB IH ×2 (16:28→21:38)
[2025-04-01 17:21] LABS: Sodium Urine Random* 85
--- NOTE | 2025-04-01 18:56 | PC.NURSE ---
End of shift: Patient alert and oriented. ambulating SBA to BR and chair. tolerating a reg. diet. Patient on RA sating between 86-91%. Patient denies N/V/SOB. Patient requests to hold off on applying her nicotine patch and will let staff know if one is needed. [address] and tolerating well.
[2025-04-01 19:12] VITALS: BP 123/61; PULSE 87; RESP 16; TEMP 36.9; O2SAT 87
[2025-04-01] MEDS: BUDESONIDE 0.5 MG/2ML NEB NEB (20:14)
[2025-04-01] MEDS: METOPROLOL SUCCINATE (XL) 50 MG TAB PO (20:16)
[2025-04-01 22:38] LABS: Sodium* 122 mmol/L (135-149)
[2025-04-01 23:00] VITALS: BP 121/68; PULSE 77; RESP 16; TEMP 36.6; O2SAT 93
--- NOTE | 2025-04-01 23:02 | PC.NURSE ---
Pt very pleasant. SBA with a walker. Up to BR this evening and had BM. No N/V. Remained on RA. Does get SOB with trip to and from BR but does recover quickly. Pt refused Ke patch this evening.
[2025-04-02] VITALS (8 sets, daily range): BP systolic 96–129; BP diastolic 42–65; PULSE 81–90; RESP 16–26; TEMP 36.6–37.1; O2SAT 88–91
[2025-04-02] MEDS: IPRAT-ALBUT 0.5-2.5 MG/3 ML NEB 1 NEB IH ×3 (04:50→16:23)
[2025-04-02 06:35] LABS: HCO3 VBG 31 mmol/L (21-28); PCO2 VBG 37 mmHG (40-50); PO2 VBG 75.7 mmHG (25-47); pH VBG 7.529 (7.32-7.43)
[2025-04-02 06:41] LABS: Hematocrit* 36.7 % (33.0-51.0); Hemoglobin* 12.5 gm/dL (12.0-16.0); Mean Corpuscular HGB Conc 34 gm/dL (32-36); Mean Corpuscular Hemoglobin 31 pg (26-34); Mean Corpuscular Volume 91 fL (80-100); RDW Coefficient of Variation % 12.4 % (11.5-15.5); Red Blood Count* 4.05 m/uL (4.00-5.20); White Blood Count* 12.57 K/uL (4.50-11.00)
[2025-04-02 06:42] LABS: Immature Granulocytes Abs Auto 0.10 K/uL (0.00-0.30); Immature Granulocytes Pct Auto 0.6 %; Lymphocytes Absolute Auto 2.70 K/uL (0.90-2.90); Slide Review Reflex No
[2025-04-02 07:17] LABS: Chloride* 91 mmol/L (96-114)
[2025-04-02 07:18] LABS: Potassium* 3.8 mmol/L (3.6-5.1)
[2025-04-02 07:21] LABS: Anion Gap 3 mEq/L (7-15); Blood Urea Nitrogen* 18 mg/dL (7-30); Calcium* 8.3 mg/dL (8.4-10.6); Carbon Dioxide* 30 mmol/L (20-32); Creatinine* 0.8 mg/dL (0.5-1.5); Est. Creatinine Clearance* 26.43; Estimated Glomerular Filt Rate 74 ml/min; Glucose* 83 mg/dL (60-115)
[2025-04-02 07:25] LABS: Sodium* 124 mmol/L (135-149)
[2025-04-02] MEDS: DOXYCYCLINE HYCLATE 100 MG PO (08:41)
[2025-04-02] MEDS: SODIUM CHLORIDE 1 GM TABLET PO ×3 (08:41→17:40)
[2025-04-02] MEDS: TORSEMIDE 20 MG TABLET PO (08:41)
[2025-04-02] MEDS: OMEPRAZOLE 20 MG CAPSULE DR PO ×2 (08:41→17:40)
[2025-04-02] MEDS: CITALOPRAM HYDROBROMIDE 20 MG TABLET 10 MG PO (08:42)
[2025-04-02] MEDS: guaiFENesin 600 MG TAB.ER.12H 1200 MG PO (08:42)
[2025-04-02] MEDS: POTASSIUM CHLORIDE 10 MEQ CAPSULE ER 20 MEQ PO (08:43)
[2025-04-02] MEDS: BUDESONIDE 0.5 MG/2ML NEB NEB (08:44)
[2025-04-02] MEDS: SODIUM CHLORIDE 0.9 % (FLUSH) 10 ML SYRINGE 5 ML IVF (08:44)
--- NOTE | 2025-04-02 14:56 | PC.NURSE ---
Pt doing well today. VSS. Denies pain. Pt continues to have minimal SOB with activity, however it is improving. Pt is SBA with walker, ambulating well. Pt has been on room air entire shift, sating 89-90%. Pt is tolerating regular diet. Resting in recliner at this time.
[2025-04-02 15:54] LABS: Sodium* 127 mmol/L (135-149)
--- NOTE | 2025-04-02 16:54 | P.DS_ITS ---
DS: Providers Provider Date Seen: 04/02/25 Date of admission: 03/27/25 15:46 Primary care physician: Jair Gomez PA-C Admitting Clinician: Sravanthi Delatorre MD Attending Physician on discharge: Julius Bro MD Date of Discharge: 04/02/25 DS: Diagnosis Discharge Diagnosis (1) Acute on chronic hypoxic respiratory failure: Status: Acute Problem details: Primarily due to COPD and secondarily due to new heart failure and pneumonia. treated with antibiotics for possibility of respiratory infection. Back to baseline at discharge. Patient refusing oxygen at discharge. At rest her oxygen saturations are around 90%. (2) Acute exacerbation of chronic obstructive pulmonary disease (COPD): Status: Acute Problem details: Treated with inhaled bronchodilators and systemic corticosteroids and antibiotics. Clinically much improved. Mild CO2 retention with PCO2 of 51. Refusing outpatient oxygen (3) Bronchopneumonia: Status: Acute Problem details: Radiographic appearance on chest x-ray suggested bronchopneumonia. Treated with ceftriaxone and doxycycline. (4) (HFpEF) heart failure with preserved ejection fraction: Status: Acute Problem details: -echo 03/28/25 = shows preserved EF with dilated IVC, elevated right sided pressures Started on torsemide and potassium. Needs ongoing outpatient follow-up (5) Tobacco use: Status: Acute Problem details: - pre contemplative about smoking cessation at this juncture - willing to try nicotine patch, after I explained that will not address her psychological and emotional dependence but only help with the physical dependence - pt is willing to try celexa for GAEL and increase her coping skills so cigarettes are not her go to for stress. (6) Physical deconditioning: Status: Acute Problem details: Ambulating independently (7) Chronic hyponatremia: Status: Acute Problem details: Sodium 130 on admission now dropped to 122. Sodium of 127 at discharge. Prescribed sodium chloride 1000 mg daily orally plus high protein and high sodium diet. (8) GI bleeding: Status: Acute Problem details: Heme-positive dark stool obtained 03/30/2025. Hemoglobin and vital signs stable. EGD shows small gastric ulcers without active bleeding. Continue PPI. Await biopsies. DS: Summary Hospital Course Hospital Course: Jenelle Manuel is a 84 year old woman who presents to the emergency department with a 6-7 day history of increasing dyspnea with exertion, product estefani cough, decreased appetite. She has lived in her own home alone for the past 11 months. Previously she lived in her own home with her daughter and son-in-law, who moved out 11 months ago. Has felt increased sense of anxiety and stress since living alone. She tells me she uses smoking as a means to decrease her sense of anxiety. She says she gets nervous ?really easy. ? When she does smoke she takes 2-3 puffs of a cigarette, puts out the cigarette in later does the same thing and smokes 3-4 cigarettes per day in this fashion. He eventually wants to continue to try to cut down on her smoking but not ready to do so any more than she already has at this time. 6-7 days ago, she had marked worsening of her health due to increase cough with sputum production, increasing dyspnea with exertion, a sense of feeling feverish although she never took her temperature. Her appetite has declined significantly since that time as well. Does not believe her condition has improved at all over the last 6-7 days and has become increasingly anxious about the same. Finally this morning she decided that she had had enough and called her daughter, Syl, who lives in [facility], who recommended that the patient present to the emergency department for further assessment. Has not had any fevers since that 1st and 2nd day. Other symptoms progressively increasing such that she can hardly even walk now due to dyspnea. Ordinarily does not have dyspnea with conversation but notes increasing dyspnea with conversation. Denies edema. Denies chest heaviness, pressure, tightness, pain. Denies syncope or near-syncope. Has had decreased oral intake due to decreased interest in eating. Hospital course: On admission she was treated primarily for COPD exacerbation with inhaled bronchodilators, systemic corticosteroids and antibiotics. With her fever and infiltrates on chest x-ray was suspected she had pneumonia. She was also suspected of having some heart failure contributing to this. Respiratory status clinically improved during the 1st few days. She was seen to have melanotic stools which were guaiac positive. Her hemoglobin was stable but she underwent endoscopy to show that she had 2 small gastric ulcers. Biopsies from that are pending. She was started on a PPI pending biopsies. She has chronic hyponatremia and her sodium dropped during her hospital stay f rom a baseline around 130-122. Now up to 127 on discharge. Will need outpatient follow-up. Recommended additional sodium in her diet caution with fluids and extra protein in her diet as well. Time Spent with Patient Time attestation: Total time spent providing and/or coordinating discharge services: 50 minutes Exam Narrative: Exam Narrative: She is alert and appears in no distress. Respirations are improved but still diminished breath sounds and mildly prolonged expiratory phase and occasional scattered wheezes. Cardiovascular: S1, S2, regular rate and rhythm. Abdomen: Bowel sounds active abdomen is soft without tenderness. Const: Vital Signs, click to edit/add: Vital Signs - 24 hr 04/01/25 19:12 04/01/25 23:00 04/01/25 23:00 Temperature 98.4 F Pulse Rate [Pulse Oximeter] 87 77 Respiratory Rate 16 16 16 Blood Pressure [Le ft Arm] Blood Pressure [Ri ght Arm] 123/61 Pulse Oximetry 87 L 93 Oxygen Delivery Me thod Room Air Room Air 04/01/25 23:00 04/02/25 03:00 04/02/25 08:11 Temperature 97.9 F 97.9 F 98.7 F Pulse Rate [Pulse Oximeter] 77 81 86 Respiratory Rate 16 16 18 Blood Pressure [Le ft Arm] 121/68 129/65 126/61 Blood Pressure [Ri ght Arm] Pulse Oximetry 93 91 89 Oxygen Delivery Me thod Room Air Room Air Room Air 04/02/25 08:52 04/02/25 08:53 04/02/25 11:00 Temperature 98.1 F Pulse Rate [Pulse Oximeter] 83 Respiratory Rate 18 18 Blood Pressure [Le ft Arm] 114/57 L Blood Pressure [Ri ght Arm] Pulse Oximetry 88 88 Oxygen Delivery Me thod Room Air Room Air 04/02/25 15:15 04/02/25 15:15 04/02/25 15:15 Temperature 98 F Pulse Rate [Pulse Oximeter] 85 82 Respiratory Rate 26 H 26 H 26 H Blood Pressure [Le ft Arm] 97/46 L Blood Pressure [Ri ght Arm] Pulse Oximetry 88 Oxygen Delivery Me thod Room Air 04/02/25 15:16 04/02/25 15:18 Temperature Pulse Rate [Pulse Oximeter] 90 82 Respiratory Rate Blood Pressure [Le ft Arm] 96/42 L Blood Pressure [Ri ght Arm] 98/50 L Pulse Oximetry Oxygen Delivery Me thod Documenting provider has reviewed patient's vital signs: yes DS: Data Data Completed and Pending Labs on day of discharge: Labs from last 24 hours 04/02/25 04/02/25 04/01/25 14:50 06:28 22:05 WBC 12.57 H RBC 4.05 Hgb 12.5 Hct 36.7 MCV 91 MCH 31 MCHC 34 RDW Coeff of Gena 12.4 Plt Count 301 Neut % (Auto) 69.7 Lymph % (Auto) 21.2 Sharkey % (Auto) 7.6 Eos % (Auto) 0.9 Baso % (Auto) 0.0 Neut # (Auto) 8.80 H Lymph # (Auto) 2.70 Sharkey # (Auto) 1.00 H Eos # (Auto) 0.10 Baso # (Auto) 0.00 Abs Immat Gran (auto) 0.10 Imm/Tot Granulo (auto) 0.6 VBG pH 7.529 H VBG pCO2 37 L VBG pO2 75.7 H VBG HCO3 31 H Sodium 127 L 124 L* 122 L* Potassium 3.8 Chloride 91 L Carbon Dioxide 30 Anion Gap 3 L BUN 18 Creatinine 0.8 Estimated Creat Clear 26.43 Estimated GFR 74 Glucose 83 Calcium 8.3 L Ur Random Sodium 04/01/25 16:50 WBC RBC Hgb Hct MCV MCH MCHC RDW Coeff of Gena Plt Count Neut % (Auto) Lymph % (Auto) Sharkey % (Auto) Eos % (Auto) Baso % (Auto) Neut # (Auto) Lymph # (Auto) Sharkey # (Auto) Eos # (Auto) Baso # (Auto) Abs Immat Gran (auto) Imm/Tot Granulo (auto) VBG pH VBG pCO2 VBG pO2 VBG HCO3 Sodium Potassium Chloride Carbon Dioxide Anion Gap BUN Creatinine Estimated Creat Clear Estimated GFR Glucose Calcium Ur Random Sodium [address] scan - chest: Radiologist's impression: INDICATION: Shortness of breath. Positive D-dimer. TECHNIQUE: CT chest with 95 cc Isovue 370 i.v. contrast. Pulmonary embolism protocol. Coronal and sagittal reformats were obtained. COMPARISON: Chest radiograph from 03/27/2025. FINDINGS: Cardiovascular: The heart has an unremarkable appearance and size. Thoracic aorta is normal in caliber and appearance. The pulmonary arteries are normal in appearance. Mediastinum and rosario: Bilateral. Hilar bronchial wall thickening. Lungs: Multiple nodular opacities within the lungs, most prominent within the perihilar regions and the right upper lobe. There is also platelike opacification at the right lung base which may reflect atelectasis or scar. Mosaic attenuation within the lungs bilaterally, most prominent in the upper lung regions, most likely reflecting air trapping in this setting. Emphysematous changes are present within the lungs. Pleura and pericardium: Within normal limits. Chest wall and axilla: Mildly accentuated thoracic kyphosis. No acute osseous abnormalities. Bones: Within normal limits. Upper abdomen: Within normal limits. IMPRESSION: 1. No evidence of pulmonary embolism. 2. Perihilar bronchiolar wall thickening and scattered pulmonary nodules/tree-in-bud opacities as well as some evidence of air trapping. Usually this is seen in the setting of small airways infection, inflammatory bronchiolitis, or aspiration. 3. Bilateral emphysematous changes within both lungs. Discharge Plan Discharge Disposition: Home, Self-Care Date of Admission: 03/27/25 15:46 Attending Provider on Discharge: Aaron Bro Primary Care Provider: Jair Gomez Condition: Stable Anticipated Discharge Date/Time: 04/02/25 16:20 Discharge Medications: New potassium chloride 10 mEq tablet extended release 10 meq PO DAILY Qty: 30 0RF torsemide 10 mg tablet 10 mg PO QAM Qty: 30 0RF sodium chloride 1,000 mg tablet,soluble 1,000 mg PO DAILY Qty: 30 0RF esomeprazole magnesium 20 mg tablet,delayed release (DR/EC) 20 mg PO DAILY Qty: 30 2RF nicotine 14 mg/24 hr Patch 24 Hour 1 patch transdermal Q24H Qty: 28 0RF Continued albuterol sulfate [Ventolin HFA] 90 mcg/actuation HFA aerosol inhaler 2 puff inhalation Q6H PRN (Reason: shortness of breath or wheezing) Qty: 8.5 5RF Rx Instructions: keep on file and fill when requested metoprolol succinate 50 mg tablet extended release 24 hr 50 mg PO DAILY lisinopril 10 mg tablet 10 mg PO DAILY pravastatin 20 mg tablet 20 mg PO HS fluticasone furoate-vilanterol [Breo Ellipta] 200-25 mcg/dose blister with device 1 ea PO DAILY Rx Instructions: PATIENT WILL NEED TO USE OWN INHALER FROM HOME Discharge Orders: Discharge Order (Routine); Ordered 04/02/25 Ordered By: Aaron Bro Patient Education: COPD (Chronic Obstructive Pulmonary Disease) (ED) Activity Level: No Restrictions Discharge Diet: Regular Follow Up Appointments: [facility] [Other] Referral Note: Follow-up in 1 week in clinic to recheck breathing, blood pressure, labs including basic metabolic panel, CBC, biopsy results from endoscopy. Naif Varela MD [Staff Physician, Family Practice] - 04/07/25 7:45 am Referral Note: Post hospital follow up appointment and lab draw will be done at the [facility]. Jair Gomez PAAnnieC [Primary Care Provider, Family Practice] Forms: [facility] Info Instructions
--- NOTE | 2025-04-02 18:36 | PC.NURSE ---
Addendum entered by Delma Frausto RN 04/02/25 19:17: Patient left the floor by wheelchair to daughter-in laws home with belongings at 1909. Original Note: End of Shift: Patient pleasant and cooperative. Patient vitally stable, afternoon BP was hypotensive, MD aware, BS WNL, IV SL and intact. Patient is on RA with sats 88% and above. Patient denies pain. Patient is SBA with walker when ambulating. Patient is not much of an eater but is tolerating regular diet, she consumed a pudding, and ensure, and a piece of meatloaf with gravy. Patient has been up to chair all afternoon. Patient urinating well, no BM this afternoon. Patient signed belongings sheet and discharge form, all questions answered regarding discharge education. Patient is currently waiting for [id number] to pick her up.
== END 2025-04-02 19:09 | disposition home or self-care (01) | DRG 189 ==
LOC: ED 13:37 → MEDSURG 14:17
PROVIDERS: Family Medicine; Admitting Provider Internal Medicine; Emergency Provider Internal Medicine; PCP Physician Assistant Medical; Visit Provider Family Medicine
DX: J96.21 Acute and chronic respiratory failure with hypoxia (principal); J18.0 Bronchopneumonia, unspecified organism; I50.31 Acute diastolic (congestive) heart failure; K25.4 Chronic or unspecified gastric ulcer with hemorrhage; J44.0 Chronic obstructive pulmonary disease with (acute) lower respiratory infection; J44.1 Chronic obstructive pulmonary disease with (acute) exacerbation; E87.1 Hypo-osmolality and hyponatremia; R64 Cachexia; Z68.1 Body mass index [BMI] 19.9 or less, adult; K25.9 Gastric ulcer, unspecified as acute or chronic, without hemorrhage or perforation; M62.84 Sarcopenia; F41.9 Anxiety disorder, unspecified; F17.210 Nicotine dependence, cigarettes, uncomplicated
CPT/HCPCS: 00731; 36415; 36600; 43239; 71046; 71275; 80048; 80053; 80069; 82270; 82803; 83605; 83735; 83880; 83930; 83935; 84145; 84295; 84300; 84439; 84443; 84480; 84484; 85025; 85027; 85379; 86140; 87040; 87449; 87637; 87899; 88305; 93005; 93306; 94640; 94664; 94761; 99100; 99283; 99285; A9270; J0456; J0696; J1650; J2704; J2919; J3475; J7030; J7050; J7131; J7512; Q9967; S4990

== ENCOUNTER 2025-04-09 10:26 | Outpatient (CLI) | payer OTHER, SELFPAY | END 2025-04-09 10:27 | disposition home or self-care (01) | PROVIDERS: PCP Physician Assistant Medical; Visit Provider Family Medicine | DX: I10 Essential (primary) hypertension (principal); E78.2 Mixed hyperlipidemia; I50.30 Unspecified diastolic (congestive) heart failure | CPT/HCPCS: 80048; 83880 ==

== ENCOUNTER 2025-05-18 10:41 | Outpatient (CLI) | payer OTHER, SELFPAY | END 2025-05-18 10:42 | disposition home or self-care (01) | LOC: FBOREF 10:41 | PROVIDERS: PCP Family Medicine; Visit Provider Family Medicine | DX: I10 Essential (primary) hypertension (principal) | CPT/HCPCS: 80048 ==